=== PATIENT | male | born 1935 | race American Indian/Alaskan Native ===

== ENCOUNTER 2017-01-12 08:25 | Inpatient (IN) | payer MEDICARE ==
[2017-01-12] MEDS ORDERED: NACL 0.9% 1000 ML 1,000 ML IV ONE (09:13)
--- NOTE | 2017-01-12 09:22 | Emergency Department Report ---
HPI - General Chief Complaint: Weakness Time Seen by Provider: 01/12/17 09:07 - HPI HPI: Room 7 The patient is a 81-year-old male presenting with a chief complaint of altered mental status. Family states the patient has not been behaving like himself for the past week and also looks as though he is "not breathing right." Today the patient was found to be unresponsive on the floor was subsequently brought in to the ED for evaluation. Parents states patient has not been behaving like himself and gives an example the patient willingly placing himself on the floor episode of sitting in a chair or lying in the bed. Family denies any history of fall. The patient has a history of Alzheimer's Location: Mental state Duration: One week Quality: Altered Severity: Moderate Modifying factors: [see above] Context: [see above] Mode of transportation: [not driving] ED Past Medical Hx - Past Medical History Hx Hypertension: Yes (no diagnosed, no meds BP 177/93) Hx Dementia: Yes Additional medical history: alzheimers, dementia - Surgical History Additional Surgical History: prostate - Family History Family history: no significant - Social History Smoking Status: Former Smoker (none 30 years) Substance Use Type: None - Medications Home Medications: Home Medications Medication Instructions Recorded Confirmed Last Taken Type Docusate Sodium [Colace CAP] 100 mg PO BID PRN #30 capsule 04/12/14 07/31/1409/08 Rx Memantine [Namenda] 1 tab PO DAILY 05/09/14 07/31/14 07/29/14 History Lisinopril [Zestril TAB] 20 mg PO QDAY #30 tablet 05/14/14 07/31/14 07/30/14 Rx ED Review of Systems ROS: Stated complaint: FAILURE TO THRIVE Other details as noted in HPI Comment: Unobtainable due to pts medical conditions Physical Exam - Physical Exam Vital Signs: Vital Signs 01/12/17 08:35 Temperature 97.8 F Pulse Rate 108 H Respiratory 19 Rate Blood Pressure 89/59 O2 Sat by Pulse 96 Oximetry Physical Exam: GENERAL: The patient is well-developed well-nourished male lying on stretcher nonverbal. [] HEENT: Normocephalic. Atraumatic. NECK: Supple. Trachea midline CHEST/LUNGS: Occasional rhonchi/coarse breath sounds. There is no respiratory distress noted. HEART/CARDIOVASCULAR: Regular. There is tachycardia. There is no gallop rub or murmur. ABDOMEN: Abdomen is soft, nontender. Patient has normal bowel sounds. There is no abdominal distention. SKIN: There is no rash. There is no edema. There is no diaphoresis. NEURO: The patient is nonverbal and not cooperative at baseline. The patient will not cooperate with neurological exam MUSCULOSKELETAL: There is no evidence of acute injury. ED Course Vital Signs 01/12/17 08:35 Temperature 97.8 F Pulse Rate 108 H Respiratory 19 Rate Blood Pressure 89/59 O2 Sat by Pulse 96 Oximetry ED Medical Decision Making - Lab Data Result diagrams: 01/12/17 09:28 01/12/17 09:28 Laboratory Tests 01/12/17 01/12/17 01/12/17 08:41 09:28 09:28 WBC 6.8 RBC 4.18 Hgb 11.8 Hct 35.3 L MCV 85 MCH 28 MCHC 33 RDW 17.0 H Plt Count 106 L Lymph % (Auto) 6.8 L [place] % (Auto) 4.4 Eos % (Auto) 0.1 Baso % (Auto) 0.2 Lymph # 0.5 L [place] # 0.3 Eos # 0.0 Baso # 0.0 Seg Neutrophils % 88.5 H Seg Neutrophils # 6.0 PT 18.6 H INR 1.47 H APTT 29.7 Sodium Potassium Chloride Carbon Dioxide Anion Gap BUN Creatinine Estimated GFR BUN/Creatinine Ratio Glucose POC Glucose 86 Calcium Total Bilirubin AST ALT Alkaline Phosphatase Total Creatine Kinase CK-MB (CK-2) CK-MB (CK-2) Rel Index Troponin T Total Protein Albumin Albumin/Globulin Ratio 01/12/17 09:28 WBC RBC Hgb Hct MCV MCH MCHC RDW Plt Count Lymph % (Auto) [place] % (Auto) Eos % (Auto) Baso % (Auto) Lymph # [place] # Eos # Baso # Seg Neutrophils % Seg Neutrophils # PT INR APTT Sodium 151 H Potassium 4.6 Chloride 114.2 H Carbon Dioxide 14 L Anion Gap 27 BUN 71 H Creatinine 1.8 H Estimated GFR 44 BUN/Creatinine Ratio 39.44 Glucose 111 H POC Glucose Calcium 9.1 Total Bilirubin 1.10 AST 70 H ALT 38 Alkaline Phosphatase 160 H Total Creatine Kinase 823 H CK-MB (CK-2) 20.5 H CK-MB (CK-2) Rel Index 2.4 Troponin T 0.788 H* Total Protein 6.1 L Albumin 3.0 L Albumin/Globulin Ratio 1.0 - EKG Data -: EKG Interpreted by Me EKG shows normal: sinus rhythm Rate: tachycardia (108 bpm) - EKG Data Interpretation: nonspecific ST-T wave grace - Radiology Data Radiology results: report reviewed (chest x-ray, CT head), image reviewed ( chest x-ray) interpreted by me: Chest x-ray-right middle lobe infiltrate. Left rib fracture. No pneumothorax Chest x-ray (read by radiologist)-acute left rib fracture suspected, possibly involving 6 through [address] head (read by radiologist)-advanced volume loss and chronic white matter changes. No acute intracranial process - Differential Diagnosis ACS, ICH, rhabdomyolysis, UTI, sepsis, pneumonia Critical care attestation.: If time is entered above; I have spent that time in minutes in the direct care of this critically ill patient, excluding procedure time. ED Disposition Clinical Impression: Altered mental status, Pneumonia, Ribs, multiple fractures, Elevated troponin, Acute renal insufficiency, Hypernatremia, Dehydration Disposition: 09 OP ADMIT IP TO THIS HOSP Is pt being admited?: Yes Does the pt Need Aspirin: No Condition: Fair Instructions: Bacterial Pneumonia (ED) Referrals: PRIMARY CARE, [Primary Care Provider] - 3-5 Days Time of Disposition: 11:04 (hospitalist placed)
[2017-01-12 09:43] LABS: Basophils % (Auto) 0.2 % (0.0-1.8); Eosinophils % (Auto) 0.1 % (0.0-4.3); Hematocrit 35.3 % (35.5-45.6); Hemoglobin 11.8 gm/dl (11.8-15.2); Mean Corpuscular HGB Conc 33 % (32-34); Mean Corpuscular Hemoglobin 28 pg (28-32); Mean Corpuscular Volume 85 fl (84-94); Platelet Count 106 K/mm3 (140-440); Red Blood Count 4.18 M/mm3 (3.65-5.03); White Blood Count 6.8 K/mm3 (4.5-11.0)
[2017-01-12 09:53] LABS: INR 1.47 (0.87-1.13)
[2017-01-12 09:54] LABS: Partial Thromboplastin Time 29.7 Sec. (24.2-36.6)
[2017-01-12 10:05] LABS: Creatine Kinase MB 20.5 ng/mL (0.0-4.0)
[2017-01-12 10:06] LABS: BUN/Creatinine Ratio 39.44; Bilirubin,Total 1.1 mg/dL (0.1-1.2); Calcium 9.1 mg/dL (8.4-10.2); Chloride 114.2 mmol/L (98-107); Potassium 4.6 mmol/L (3.6-5.0); Total Protein 6.1 g/dL (6.3-8.2)
--- NOTE | 2017-01-12 10:41 | XRay Report ---
PORTABLE CHEST INDICATION: Increased work of breathing. COMPARISON: None similar. FINDINGS: Portable, frontal chest radiograph suggests borderline cardiomegaly. Aortic knob calcifications. Hazy bibasilar opacities may represent fluid/atelectasis with partly obscured hemidiaphragms. Mild hazy biapical scarring/pleural thickening. EKG leads. Demineralized bones, few degenerative changes and an acute left seventh rib fracture, also questionably involving the sixth and eighth ribs. CONCLUSION: 1. Acute left rib fractures suspected, possibly involving sixth through eighth ribs, as described. Please correlate. 2. Bibasilar opacities also noted, as described. Thank you for the opportunity to participate in this patient's care.
--- NOTE | 2017-01-12 10:48 | Cat Scan Report ---
CT HEAD WITHOUT CONTRAST: HISTORY: Altered mental status. TECHNIQUE: Sequential CT images without contrast. FINDINGS: Non-contrast CT of the head is submitted demonstrating central and cortical atrophy. There are low density changes in the periventricular white matter. There is no intracranial hemorrhage or mass effect. There is no shift of the midline. Basilar cisterns are patent. The included portions of the paranasal sinuses and mastoid air cells are clear. IMPRESSION: Advanced volume loss and chronic white matter changes. No acute intracranial process.
[2017-01-12] MEDS ORDERED: ZOSYN/NS 3.375GM/50ML 3.375 GM/50 ML BAG IV ONE (10:49)
[2017-01-12] MEDS ORDERED: PLAVIX PO ONE (10:51)
[2017-01-12] MEDS ORDERED: PERCOCET 5/325 PO PRN (11:24)
[2017-01-12] MEDS ORDERED: DULCOLAX PR PRN (11:24)
[2017-01-12] MEDS ORDERED: TYLENOL PO PRN (11:24)
[2017-01-12] MEDS ORDERED: ZOFRAN IV PRN (11:24)
--- NOTE | 2017-01-12 11:24 | History and Physical Report ---
History of Present Illness Date of examination: 01/12/17 Date of admission: 01/13/17 Chief complaint: AMS History of present illness: The pt is a 81 YO male with a past medical history significant for HTN, HLP, prostate CA, s/p prostatectomy in 1999 and Alzheimer's disease (since 2000) presenting with a chief complaint of altered mental status. Today the patient was found to be unresponsive on the floor was subsequently brought in to the ED for evaluation. Family states the patient has not been behaving like himself for the past week and also looks as though he is "not breathing right." Family denies any history of fall. Patient during encounter unable to provide any history. Following admission, pt noted to have bilateral PNA on CXR, lactic acidosis, acute renal failure, mild rhabdomyolysis, dehydration, hypernatremia and thrombocytopenia. Past medical History: h/o dementia since 2000, HTN, HLD, prostate cancer Past surgical History: s/p prostate surgery on 1999 Social History: Lives with family, no smoking, drinking and elicit drug abuse. Family History: Significant for dementia Review of System: unobtainable due to AMS Medications and Allergies Allergies Allergy/AdvReac Type Severity Reaction Status Date / Time No Known Allergies Allergy Verified 05/09/14 13:30 Home Medications Medication Instructions Recorded Confirmed Last Taken Type Acetaminophen/Codeine [Tylenol 1 tab PO TID PRN 01/12/17 01/12/17 Unknown History /Codeine # 3 tab] Ketoconazole 2% [Nizoral] 1 applicatio TP QDAY 01/12/17 01/12/17 Unknown History Memantine HCl [Namenda Xr] 28 mg PO DAILY 01/12/17 01/12/17 Unknown History Mirtazapine [Remeron] 15 mg PO HS 01/12/17 01/12/17 Unknown History Rosuvastatin (Nf) [Crestor] 20 mg PO DAILY 01/12/17 01/12/17 Unknown History Exam - Physical Exam Narrative exam: GENERAL: This is elderly malnurished AAM lying on bed. Does not respond to any commend. will open eyes and make moaning sound with verbal commend. HEENT: Normocephalic. Atraumatic. No conjunctival congestion or icterus. Patient has very dry mucous membranes. External auditory canal and nares patent bilaterally. NECK: Supple. Trachea midline. CHEST/LUNGS: coarse BS to auscultated bilaterally. There is no respiratory distress noted, breathing nonlabored. HEART/CARDIOVASCULAR: tachycardic. PMI at the apex. There is no gallop rub or murmur. ABDOMEN: Abdomen is soft, nontender. Patient has normal bowel sounds. There is no abdominal distention. No organomagaly or rigidity. SKIN: There is no rash, no erythrema. There is no diaphoresis. cold and dry. NEUROLOGY: The patient appears not responsive but maintaining airway. No focal motor deficit noted. MUSCULOSKELETAL: No joint effusion or tenderness. generalized muscle wasting. EXTRIMITY: No edema, cyanosis or clubbing. PSYCH: Unable to assess. - Constitutional Vitals: Temp Pulse Resp BP Pulse Ox 98.2 F 104 H 13 112/74 98 01/12/17 11:04 01/12/17 11:04 01/12/17 11:04 01/12/17 11:04 01/12/17 11:04 Results - Labs CBC & Chem 7: 01/14/17 05:33 01/14/17 05:33 Labs: Abnormal lab results 01/12/17 01/12/17 01/12/17 Range/Units 09:28 09:28 09:28 Hct 35.3 L (35.5-45.6) % RDW 17.0 H (13.2-15.2) % Plt Count 106 L (140-440) K/mm3 Lymph % (Auto) 6.8 L (13.4-35.0) % Lymph # 0.5 L (1.2-5.4) K/mm3 Seg Neutrophils % 88.5 H (40.0-70.0) % PT 18.6 H (12.2-14.9) Sec. INR 1.47 H (0.87-1.13) Sodium 151 H (137-145) mmol/L Chloride 114.2 H (98-107) mmol/L Carbon Dioxide 14 L (22-30) mmol/L BUN 71 H (9-20) mg/dL Creatinine 1.8 H (0.8-1.5) mg/dL Glucose 111 H (75-100) mg/dL AST 70 H (5-40) units/L Alkaline Phosphatase 160 H (35-129) units/L Total Creatine Kinase 823 H (55-170) units/L CK-MB (CK-2) 20.5 H (0.0-4.0) ng/mL Troponin T 0.788 H* (0.00-0.029) ng/mL Total Protein 6.1 L (6.3-8.2) g/dL Albumin 3.0 L (3.9-5) g/dL - Imaging and Cardiology Chest x-ray: report reviewed (bibasilar opacities, acute 6 to eight rib fractures) Assessment and Plan Acute metabolic encephalopathy - likely from underlying, hypernatremia and SEAN - pt also has h/o dementia - will cont iv fluid, will treat underlying cause Hypernatremia, likely from dehydration - cont hypotonic solution - follow BMP q8h Acute renal failure likely vasomotor nephropathy - cont iv fluid - if no improvement then renal US and nephrology consult Bilateral pneumonia - cont iv abx - blood cx, sputum cx History of prostate cancer - s/p surgery on 2000, no acute issue now Alzheimer dementia - supportive care - cont namenda when can take po Mild rhabdomyolysis - cont iv fluid Severe malnutrition - likely from poor oral intake - dietary consult when medically stable Thrombocytopenia - cont to monitor CBC - cautiously use heparin product Elevated troponin - could be from underlying SEAN - will cont to monitor Rib fracture - appears acute on cxr, family denies any fall or trauma - supportive care with as needed pain management GI and DVT prophylaxis on pepcid, heparin Diet: NPO now, will do speech eval before any po when mental status improved
[2017-01-12] MEDS: HEPARIN SUB-Q SCH ×2 (11:45→20:33)
[2017-01-12] MEDS ORDERED: D5W/0.45% NACL/KCL 20 MEQ 20 MEQ/1,000 ML BAG IV SCH (12:00)
[2017-01-12 12:56] LABS: Bacteria,Urine 2+ /HPF (Negative); Bilirubin,Urine NEG (Negative); Blood,Urine MOD (Negative); Ketones,Urine NEG (Negative); Leukocyte Esterase,Urine NEG (Negative); Mucus,Urine 1+ /HPF; Nitrite,Urine NEG (Negative)
--- NOTE | 2017-01-12 14:11 | Admit Criteria Form ---
Admission Criteria Documentation: GENERAL ADMISSION CRITERIA (Place 'X' for any and all applicable criteria): Admission is indicated for ANY ONE of the following: [ ]I. Hemodynamic instability as indicated by ANY ONE of the following(1)(2) (3)(4)(5): [ ]a) Vital sign abnormality not readily corrected by appropriate treatment within 12 to 24 hours indicated by ANY ONE of the following: [ ]i) Hypotension [ ]ii) Symptomatic Tachycardia unresponsive to treatment (eg , analgesia, fluids, sedation as indicated) [ ]iii) Orthostatic vital sign changes unresponsive to treatment (eg, fluids) [ ]b) Vital sign abnormality that is severe indicated by ANY ONE of the following: [ ]i) Inadequate perfusion indicated by ANY ONE of the following: [ ]1) Lactic acidosis (greater than 2 mmol/L) [ ]2) New abnormal capillary refill (greater than 3 seconds) [ ]3) Other metabolic acidosis (arterial pH less than 7.35) not otherwise explained [ ]4) Reduced urine output [ ]5) Altered mental status [ ]6) Myocardial Ischemia [ ]v) Mean arterial pressure[A] less than 60 mm Hg [ ]vi) Mean arterial pressure[A] less than 70 mm Hg after 30 minutes of appropriate treatment (eg, fluid resuscitation) [ ]vii) IV inotropic or vasopressor medication required to maintain adequate blood pressure or perfusion [ ]viii) Sustained heart rate greater than 120 beats per minute in adult or child 6 years or older[B]] [ ]II. Hypertension requiring inpatient treatment as indicated by ANY ONE of the following(6)(7)(8): [ ]a) SBP greater than 220 mm Hg or DBP greater than 120 mm Hg despite treatment [ ]b) SBP greater than 140 mm Hg or DBP greater than 100 mm Hg with evidence of acute end organ damage as indicated by ANY ONE of the following: [ ]i) Encephalopathy [ ]ii) Acute renal failure as indicated by new onset of ANY ONE of the following(9)(10)(11)(12)(13): [ ]1) A 3-fold rise in serum creatinine from baseline [ ]2) Serum creatinine greater than 4 mg/dL ( 354 micromoles/L) with acute rise greater than 0.5 mg/dL (44.2 micromoles/L) [ ]3) Reduction of more than 75% in estimated glomerular filtration rate from baseline [ ]4) Estimated glomerular filtration rate less than 35 mL/min/1.73m2 (0.59 mL/sec/1.73m2) in child up to 18 years of age [ ]5) Cessation of urine output indicated by ALL of the following: [ ]A. Adequate volume status [ ]B. Inadequate urine output as indicated by ANY ONE of the following: [ ]a. Urine output less than 0.3 mL/kg/hr for 24 hours [ ]b. Anuria (urine output less than 0.1 mL/kg/hr) for 12 hours [ ]iii) Aortic dissection [ ]iv) Myocardial ischemia [ ]v) Left ventricular heart failure [ ]vi) Retinal hemorrhage [ ]vii) Other significant finding [ ]c) Hypertension in child requiring inpatient treatment as indicated by ALL of the following(14)(15)(16): [ ]i) Outpatient treatment not effective, not available, or not appropriate [ ]ii) SBP or DBP greater than 95th percentile for age [ ]iii) Evidence of acute end organ damage as indicated by ANY ONE of the following: [ ]1) Altered mental status [ ]2) Acute renal failure as indicated by new onset of ANY ONE of the following(9)(10)(11)(12)(13): [ ]A. A 3-fold rise in serum creatinine from baseline [ ]B. Serum creatinine greater than 4 mg/dL (354 micromoles/L) with acute rise greater than 0.5 mg/dL (44.2 micromoles/L) [ ]C. Reduction of more than 75% in estimated glomerular filtration rate from baseline [ ]D. Estimated glomerular filtration rate less than 35 mL/min/1.73m2 (0.59 mL/sec/1.73m2)in child up to 18 years of age [ ]E. Cessation of urine output indicated by ALL of the following: [ ]a. Adequate volume status [ ]b. Inadequate urine output as indicated by ANY ONE of the following: [ ]1) Urine output less than 0.3 mL/kg/hr for 24 hours [ ]2) Anuria (urine output less than 0.1 mL/kg/hr) for 12 hours [ ]3) Severe headache [ ]4) Visual disturbance [ ]5) Retinal hemorrhage [ ]6) Other significant finding [ ]III. Acute cardiac or peripheral ischemia as indicated by ANY ONE of the following: [ ]a) Acute coronary syndrome(17)(18) [ ]b) Acute peripheral ischemia (eg, pulseless, cool, mottled, or cyanotic extremity)(19) [ ]IV. Cardiac arrhythmias or findings of immediate concern indicated by ANY ONE of the following(20)(21): [ ]a) Heart rhythms that are inherently dangerous or unstable indicated by ANY ONE of the following(22)(23)(24): [ ]i) Resuscitated ventricular fibrillation or cardiac arrest [ ]ii) Ventricular escape rhythm [ ]iii) Sustained ventricular tachycardia (30 seconds or more of ventricular rhythm at greater than 100 beats per minute) [ ]iv) Nonsustained ventricular tachycardia and ANY ONE of the following: [ ]1) Suspected cardiac ischemia as cause or consequence of ventricular tachycardia [ ]2) In setting of acute myocarditis [ ]b) Unstable cardiac conduction defects indicated by ANY ONE of the following(24)(25)(26): [ ]i) Type II second-degree atrioventricular block [ ]ii) Third-degree atrioventricular block [ ]iii) New-onset left bundle branch block with suspected myocardial ischemia [ ]c) Any heart rhythm and ANY ONE of the following(22)(23)(27)(28)( 29): [ ] i) Continuous long-term ECG monitoring needed (eg, initiation of drug requiring monitoring for more than 24 hours) [ ] ii) Patient has automatic implanted cardioverter defibrillator that is repeatedly firing, malfunctioning, or in need of immediate adjustment of settings beyond the scope of ambulatory or observation care. [ ]d) Heart rhythms of concern due to ANY ONE of the following: [ ]i) Hypotension [ ]ii) Respiratory distress [ ]iii) Association with other significant symptoms (eg, bradycardia with syncope or ongoing dizziness, supraventricular tachycardia with chest pain) (27)(28) (30) [ ] V. Severe heart failure as indicated by ANY ONE of the following ( 31)(32): [ ]a) Respiratory distress [ ]b) Hypotension [ ]c) Anasarca (refractory to outpatient therapy) [ ]d) Cardiac arrhythmias of immediate concern [ ]e) Myocardial ischemia [ ]. Respiratory abnormalities, including ANY ONE of the following(33)(34) (35)(36): [ ]a) Respiratory rate greater than 30 breaths per minute unresponsive to treatment [A] [ ]b) New saturation of arterial oxygen less than 90% [ ]c) New partial pressure of carbon dioxide greater than 44 mm Hg ( 5.9 kPa) [ ]d) Supplemental oxygen or respiratory treatments needed that are new or not performable at other levels of care [ ]e) New-onset cyanosis [ ]f) Inability to protect airway [ ]g) Chronic lung disease with severe deterioration (not responsive to emergency and observation care treatment as appropriate) as indicated by ANY ONE of the following(34)(36 ): [ ]i) SaO2 5% below baseline in patient with chronic hypoxemia [ ]ii) New requirement for supplemental oxygen to keep SaO2 at baseline or acceptable level [ ]iii) Required supplemental oxygen performable only in acute inpatient setting [ ]iv) Severe airflow or ventilation abnormalities [ ]v) Previously mobile patient unable to walk between rooms [ ]vi Inability to eat or sleep due to dyspnea [ ]vii) Rapid rate of exacerbation onset [ ]viii) Altered mental status ]VII. Severe airflow or ventilation abnormalities (not responsive to emergency and observation care treatment as appropriate) as indicated by ANY ONE of the following(33)(34)(35)(37): [ ]a) PCO2 greater than 42 mm Hg (5.6 kPa) and pH less than 7.35 (new ) [ ]b) Documented PCO2 increased more than 5 mm Hg (0.7 kPa) from disease baseline [ ]c) Airflow measurements [B] less than 60% of previous best or predicted (eg, peak expiratory flow rate less than 300 L/minute) despite intensive emergent treatment [C] [ ]d) Required respiratory treatments that are performable only in acute inpatient setting [ ]VIII. Impending or actual respiratory arrest ( Also use Respiratory Failure GRG for severe respiratory disease and long-term mechanical ventilation patients) [ ]IX. Neurologic abnormalities, including ANY ONE of the following: [ ]a) New findings that suggest ANY ONE of the following: [ ]i) [employer] infection(38) [ ]ii) Cerebral bleeding, ischemia, or vasospasm(39)(40) [ ]iii) Increased intracranial pressure, hydrocephalus, or cerebral edema(41)(42)(43) [ ]iv) Spinal cord injury(44) [ ]b) Uncontrolled seizures(45) [ ]c) New-onset coma (eg, [place] coma scale score less than 9) or unexplained abnormal mental status (eg, [place] coma scale score less than 14) [D](41)(46)(47) [ ]X. New-onset severe neurologic findings requiring inpatient care; examples include(42)(48)(49): [ ]a) Papilledema [ ]b) Cerebral edema [ ]c) Mass effect on CT scan [ ]XI. Suspected acute intra-abdominal process with peritoneal signs, abdominal mass, or similar findings (50)(51)(52) [ ]XII. Severe physiologic disorder remaining after emergency or observation level care (as appropriate) as indicated by ANY ONE of the following (53): [ ]a) Significant dehydration [ ]b) Diabetic ketoacidosis [ ]c) Hyperglycemic hyperosmolar state (eg, osmolality greater than 320 mOsm/kg (mmol/kg) [ ]d) Hypoglycemia [ ]e) Other (new) acid-base disorder with pH less than 7.35 or greater than 7.5(54) [ ]f) Thyroid storm (55) [ ]g) Myxedema coma (55) [ ]XIII. Abdominal abnormalities with ANY ONE of the following(56)(57): [ ]a) Absent bowel sounds with complete ileus [ ]b) Signs of intestinal obstruction or peritonitis [E] [ ]c) Nausea and vomiting that cannot be controlled with outpatient or observation care [ ]XIV. Acute renal failure as indicated by new onset of ANY ONE of the following(9)(10)(11)(12)(13): [ ]a) A 3-fold rise in serum creatinine from baseline [ ]b) Serum creatinine greater than 4 mg/dL (354 micromoles/L) with acute rise greater than 0.5 mg/dL (44.2 micromoles/L) [ ]c) Reduction of more than 75% in estimated glomerular filtration rate from baseline [ ]d) Estimated glomerular filtration rate less than 35 mL/min/ 1.73m2 (0.59 mL/sec/1.73m2) in child up to 18 years of age [ ]e) Cessation of urine output indicated by ALL of the following: [ ]i) Adequate volume status [ ]ii) Inadequate urine output as indicated by ANY ONE of the following: [ ]1) Urine output less than 0.3 mL/kg/hr for 24 hours [ ]2) Anuria (urine output less than 0.1 mL/kg/hr) for 12 hours [ ]XV. Significant uremic complications as indicated by ANY ONE of the following(58)(59)(60): [ ]a) Outpatient therapy is ineffective or not feasible for ANY ONE of the following: [ ]i) Severe heart failure [ ]ii) Severehypertension [ ]iii) Pleural effusion [ ]iv) Pericarditis or pericardial effusion [ ]b) Cardiac arrhythmias of immediate concern [ ]c) Intractable nausea or vomiting [ ]d) Recurrent seizures [ ]e) Encephalopathy [ ]f) Bleeding abnormalities (eg, platelet dysfunction) with active (eg, gastrointestinal) bleeding [ ]g) Dialysis indicated before long-term access or ambulatory arrangements can be made [ ]h) Significant metabolic or electrolyte abnormalities (eg, severe acidosis or hyperkalemia) [ ]XVI. High fever or other high-risk infection situation as indicated by ANY ONE of the following(61)(62)(63)(64): [ ]a) Outpatient and observation care antimicrobial treatment unavailable, not effective, or not appropriate [ ]b) Documented bacteremia [ ]c) Temperature greater than 40.5 degrees C (104.9 degrees F) ( oral) [ ]d) Temperature greater than 39.5 degrees C (103.1 degrees F) ( oral) or less than 36 degrees C (96.8 degrees F) (rectal) that does not respond to e treatment and observation care [ ] XVII. Temperature less than 95 degrees F (35 degrees C)(rectal)(65) [ ] XVIII. Severe nutritional abnormalities as indicated by ALL of the following (66)(67): [ ]a) Inability to tolerate or establish sufficient oral or other enteral nutrition in outpatient setting [ ]b) Parenteral nutrition regimen need that must be implemented on inpatient basis [ ] XIX. Severe electrolyte abnormalities indicated by ALL of the following(68) (69)(70): [ ]a) Electrolytes and associated findings are not as expected for patient baseline or acceptable treatment effects. [ ]b) Severe abnormalities indicated by ANY ONE of the following: [ ]i) Sodium less than 130 mEq/L (mmol/L) (new) [ ]ii)Sodium less than 135 mEq/L (mmol/L) with ANY ONE of the following: [ ]1) Uncorrectable (to near normal or chronic baseline) after trial of outpatient and emergency treatment [ ]2) Altered mental status [ ]3) Seizures [ ]4) Severe medical etiology requiring inpatient management (eg, heart failure, hypovolemia) [ ]iii) Sodium greater than 155 mEq/L (mmol/L) [ ]iv) Sodium greater than 150 mEq/L (mmol/L) with ANY ONE of the following: [ ]1) Uncorrectable (to near normal or chronic baseline) with outpatient and emergency treatment [ ]2) Altered mental status [ ]3) Seizures [ ]4) Severe medical etiology (eg, hypovolemia, diabetes insipidus) [ ]v) Potassium less than 2.5 mEq/L (mmol/L) despite outpatient and emergency treatment [ ]vi) Potassium less than 3 mEq/L (mmol/L) with ANY ONE of the following: [ ]1) Weakness [ ]2) Cardiac abnormality (eg, arrhythmia, conduction disturbance) [ ]3) Cardiac ischemia [ ]4) Ileus [ ]5) Ongoing medical cause requiring inpatient management (eg, acute renal wasting or SIADH) [ ]6) Other severe symptoms [ ]vii) Potassium greater than 6.5 mEq/L (mmol/L) [ ]viii) Potassium greater than 5 mEq/L (mmol/L) with ANY ONE of the following: [ ]1) Uncorrectable (to near normal or chronic baseline) with outpatient and emergency treatment [ ]2) Severe ECG findings [F] [ ]3) Acute worsening of renal failure (creatinine greater than 2.5 mg/dL (221 micromoles/L) or significant elevation for age and size) [ ]4) Severe weakness [ ]5) Severe medical etiology (eg, hemolysis, infection, drug overdose) [ ]ix) Calcium less than 7 mg/dL (1.75 mmol/L) despite outpatient and emergency treatment (72) [ ]x) Calcium less than 8 mg/dL (2 mmol/L) with significant symptoms or findings; examples include(72): [ ]1) Altered mental status [ ]2) Muscle spasms [ ]3) Seizures [ ]4) Breathing difficulty [ ]5) Cardiac abnormality (eg, arrhythmia or conduction disturbance) [ ]xi) Calcium greater than 14 mg/dL (3.5 mmol/L)(72) [ ]xii) Calcium greater than 12 mg/dL (3 mmol/L) with ANY ONE of the following(72): [ ]1) Uncorrectable (to near normal or chronic baseline) with outpatient and emergency treatment [ ]2) Significant dehydration or hypovolemia as indicated by ALL of the following(70)(73)(74): [ ]A. Not resolved with initial treatments [ ]B. Clinically significant dehydration as indicated by ANY ONE of the following: [ ]a. Vomiting refractory to outpatient treatment (ie, precluding oral rehydration) [ ]b. Inability to drink [ ]c. Hypernatremia or other electrolyte abnormality unable to be corrected with outpatient and emergency treatment [ ]d. Failure to remain hydrated with outpatient therapy [ ]e. Reduced urine output [ ]f. Hypotension [ ]g. Serious cause for dehydration requiring acute hospitalization (eg, bowel obstruction, increased intracranial pressure, infectious cause) [ ]h. Child with ANY ONE of the following(75): [ ]1) Severe abdominal tenderness [ ]2) Adequate care not available at home [ ]3) Severe dehydration ( greater than 9% loss of body weight) [ ]4) Significant symptoms or findings; examples include: [ ]A. Altered mental status [ ]B. Cardiac abnormality (eg, arrhythmia, conduction disturbance) [ ]C. Malignant etiology requiring inpatient treatment [ ]xiii) Phosphorus less than 1 mg/dL (0.32 mmol/L) [ ]xiv) Phosphorus less than 1.5 mg/dL (0.48 mmol/L) with ANY ONE of the following: [ ]1) Patient unresponsive to outpatient and emergency treatment [ ]2) Significant symptoms or findings; examples include: [ ]A. Weakness [ ]B. Altered mental status [ ]C. Breathing difficulty [ ]D. Seizures [ ]E. Rhabdomyolysis [ ]xv) Phosphorus greater than 10 mg/dL (3.2 mmol/L) [ ]xvi) Phosphorus greater than 4.5 mg/dL (1.45 mmol/L) (new) with ANY ONE of the following: [ ]1) Severe medical etiology (eg, crush injury, acute renal failure) [ ]2) Associated hypocalcemia with significant findings; examples include: [ ]A. Neurologic symptoms [ ]B. Altered mental status [ ]C. Muscle spasms [ ]D. Seizures [ ]E. Breathing difficulty [ ]F. Cardiac abnormality (eg, arrhythmia, conduction disturbance) [ ]xvii) Magnesium less than 1 mg/dL (0.41 mmol/L) [ ]xviii) Magnesium less than 1.5 mg/dL (0.62 mmol/L) with ANY ONE of the following: [ ]1) Patient unresponsive to outpatient and emergency treatment [ ]2) Associated hypocalcemia with significant findings; examples include: [ ]A. Altered mental status [ ]B. Muscle spasms [ ]C. Seizures [ ]D. Breathing difficulty [ ]E. Cardiac abnormality (eg, arrhythmia , conduction disturbance) [ ]3) Associated hypokalemia (potassium less than 3 mEq/L (mmol/L)) with risk of arrhythmia [ ]xix) Magnesium greater than 4 mEq/L (2 mmol/L) [ ]xx) Magnesium greater than 2.5 mEq/L (1.25 mmol/L) with significant symptoms or findings; examples include: [ ]1) Weakness [ ]2) Altered mental status [ ]3) Cardiac abnormality (eg, arrhythmia, conduction disturbance) [ ]4) Breathing difficulty [ ]5) Severe medical etiology (eg, renal failure, hypovolemia) [ ]xxi) Uric acid greater than 20 mg/dL (1190 micromoles/L)(76) [ ]xxii) Uric acid greater than 8 mg/dL (476 micromoles/L) with significant symptoms or findings of tumor lysis syndrome; examples include(76): [ ]1) Creatinine greater than 1.5 times upper limit of normal [ ]2) Cardiac abnormality (eg, arrhythmia, conduction disturbance) [ ]3) Seizure [ ]XX. Acute blood loss causing significant abnormality as indicated by ANY ONE of the following(77)(78): [ ]a) Hemoglobin less than 10 g/dL (100 g/L) (not baseline) [ ]b) Hematocrit less than 30% (0.30) (not baseline) [ ]c) Repeat hematocrit decreased more than 2% (0.02) [ ]d) Uncontrolled bleeding [ ]XXI. Severe anemia indicated by ANY ONE of the following(78)(79): [ ]a) Altered mental status [ ]b) Chest pain [ ]c) Exertional dyspnea [ ]d) Syncope [ ]e) Other findings suggesting inadequate perfusion [ ]f) Treatment with transfusion or volume replacement is ineffective at resolving ANY ONE of the following [G]: [ ]i) Tachycardia for age [ ]ii) Orthostatic vital sign changes as indicated by ANY ONE of the following(80): [ ]1) Fall in SBP of 20 mm Hg or more 1 to 3 minutes after patient sits or stands from recumbent position [ ]2) Fall in DBP of 10 mm Hg or more 1 to 3 minutes after patient sits or stands from recumbent position [ ]XXII. High-risk low platelet count as indicated by ANY ONE of the following( 81)(82): [ ]a) Severe or life-threatening bleeding (eg, intracranial, major gastrointestinal, or extensive mucosal bleeding), with any reduced platelet count [ ]b) Platelet count less than 20,000/mm3 (20 x109/L) with any active bleeding [ ]c) Platelet count less than 10,000/mm3 (10 x109/L) with minor purpura or petechiae [ ]d) Platelet count less than 5000/mm3 (5 x109/L) [ ]e) Low platelet count with hemolytic anemia [ ]XXIII. Disseminated intravascular coagulation(77)(83) [ ]XXIV. Severe adverse drug or systemic toxin reaction requiring inpatient treatment; examples include(84)(85): [ ]a) Serotonin syndrome(86) [ ]b) Neuroleptic malignant syndrome(86) [ ]c) Cholinergic syndrome with severe symptoms (eg, bronchorrhea, weakness, mental status changes, seizures) [ ]d) Sympathetic syndrome with severe symptoms (eg, seizures, mental status changes, cardiac dysrhythmias) [ ]e) Anticholinergic syndrome [ ]XXV. Severe pain requiring acute inpatient management as indicated by ALL of the following (87)(88)(89): [ ]a) Continuous or frequent (eg, every 2 to 4 hours) parenteral analgesics required [H] [ ]b) Rapid improvement expected from treatment or acute intervention (eg, surgery, anesthesia procedure) [ ]XXVI.Severe behavioral health issues judged unmanageable at a lower level of care (eg, residential) in a patient who is ANY ONE of the following(91) [ ]a) Acutely suicidal [ ]b) A danger to self (eg, self-mutilating or suicidal behavior) [ ]c) A danger to others (eg, assaultive or homicidal behavior) [ ]d) Incapacitated because of grave disability (eg, inability to provide for self at lower level of care) (92) [ ]XXVII. Inpatient monitoring needed; examples include(1)(3)(87)(93)(94)(95)(96 ): [ ]a) Vital signs, neurologic signs, or vascular checks more frequently than every 4 hours [ ]b) Cardiac or respiratory monitoring beyond the scope (eg, over 24 hours) of observation care [ ]c) Pulmonary artery catheter monitoring [ ]d) Suspected compartment syndrome(97) (98) [ ]e) Cerebral bleeding, hydrocephalus, or vasospasm monitoring [ ]f) Increased intracranial pressure or cerebral edema monitoring [ ]g) monitoring [ ]XXVIII. Treatment requiring inpatient care; examples include: [ ]a) IV fluid to replace significant ongoing losses (greater than 3 L/m2 per day)(53) [ ]b) High concentration oxygen (greater than 40%)(33)(99)(100) [ ]c) Frequent respiratory therapy (more frequently than every 4 hours) to maintain airflow rates greater than 60% of baseline(33)(99)(100) [ ]d) Epidural analgesia(87) [ ]e) IV anticoagulation, vasoactive, or antiarrhythmic medication(19 )(23) [ ]f) Acute thrombolytics (generally require 24 hours of observation )(101)(102) [ ]XXIX. Emergency procedures needed; examples include: [ ]a) Emergency inpatient surgery [ ]b) Temporary pacemaker placement(103) [ ]c) Chest tube placement with active evacuation (eg, suction, drainage)(104) [ ]d) Emergent cardioversion(105) [ ]e) Emergent cardiac or vascular procedures (eg, cardiac catheterization, angioplasty) (17)(18) [ ]f) Emergent dialysis access placement and institution(10)(106) [ ]g) Emergent pericardiocentesis(107) [ ]h) Emergent plasmapheresis or leukapheresis(83) [ ]i) Emergent tracheostomy The original [employer] content created by [employer] has been revised. The portions of the content which have been revised are identified through the use of italic text or in bold, and [employer] [email or web address] has neither reviewed nor approved the modified material. All other unmodified content is copyright [employer]. Please see references footnoted in the original [employer] edition 2016
[2017-01-12] MEDS: ZITHROMAX 500 MG in NACL 0.9% 250ML 250 ML IV SCH (15:40)
[2017-01-12] MEDS: DUONEB *Not for PRN Use IH SCH ×2 (16:54→20:47)
[2017-01-12] MEDS: ROCEPHIN/NS 1 GM/50 ML 1 GM/50 ML BAG IV SCH (17:00)
[2017-01-12 17:24] LABS: BUN/Creatinine Ratio 39.5; Calcium 9.1 mg/dL (8.4-10.2); Chloride 113.5 mmol/L (98-107); Potassium 4.4 mmol/L (3.6-5.0)
[2017-01-12] MEDS ORDERED: D5NS 0.2% 1,000 ML IV SCH (19:00)
[2017-01-12 21:56] LABS: Calcium 8.9 mg/dL (8.4-10.2); Chloride 115.6 mmol/L (98-107); Potassium 4.7 mmol/L (3.6-5.0)
[2017-01-12] MEDS: D5W IV SCH (23:11)
[2017-01-12] MEDS: NACL IV SCH (23:11)
[2017-01-13] MEDS: DUONEB *Not for PRN Use IH SCH ×4 (02:33→21:29)
[2017-01-13 03:17] LABS: Hematocrit 37.1 % (35.5-45.6); Hemoglobin 12.2 gm/dl (11.8-15.2); Mean Corpuscular HGB Conc 33 % (32-34); Mean Corpuscular Hemoglobin 28 pg (28-32); Mean Corpuscular Volume 85 fl (84-94); Red Blood Count 4.35 M/mm3 (3.65-5.03); Red Cell Distribution Width 17.7 % (13.2-15.2); White Blood Count 10.3 K/mm3 (4.5-11.0)
[2017-01-13 03:18] LABS: Platelet Count 96 K/mm3 (140-440)
[2017-01-13 03:30] LABS: Albumin 3.2 g/dL (3.9-5); Albumin/Globulin Ratio 1.1 %; BUN/Creatinine Ratio 35.21; Bilirubin,Total 1.5 mg/dL (0.1-1.2); Potassium 4.9 mmol/L (3.6-5.0); Total Protein 6.2 g/dL (6.3-8.2)
[2017-01-13] MEDS: HEPARIN SUB-Q SCH ×3 (06:57→21:10)
[2017-01-13] MEDS ORDERED: NAMENDA PO SCH (10:00)
[2017-01-13] MEDS: PEPCID IV SCH (10:38)
--- NOTE | 2017-01-13 14:49 | Ultrasound Report ---
ULTRASOUND RENAL BILATERAL HISTORY: Chronic renal disease. TECHNIQUE: transabdominal ultrasound with color Doppler interrogation. FINDINGS: The right kidney measures 8.4 x 4.8 x 4.1cm. Right renal cortex: 1.1cm. The left kidney measures 10.1 x 3.8 x 3.9cm. Left renal cortex: 0.9cm. Both kidneys are slightly atrophic with increased echotexture consistent with chronic renal parenchymal disease. 5.4 x 5.5 cm unilocular cyst at the superior pole of the left kidney is noted. There is no evidence for mass, calculus or hydronephrosis. The bladder is empty and contains a Vicente catheter. IMPRESSION: Chronic renal parenchymal disease. Left renal cyst.
[2017-01-13] MEDS: NACL IV SCH (15:23)
[2017-01-13] MEDS: D5W IV SCH (15:23)
[2017-01-13] MEDS: ZITHROMAX 500 MG in NACL 0.9% 250ML 250 ML IV SCH (15:41)
--- NOTE | 2017-01-13 15:43 | Progress Note ---
Assessment and Plan Acute metabolic encephalopathy - likely from underlying, hypernatremia and ESAN - pt also has h/o dementia - will cont iv fluid, will treat underlying cause - improving with current management Hypernatremia, likely from dehydration - cont hypotonic solution - follow BMP , nephrology consult Acute renal failure likely vasomotor nephropathy - cont iv fluid - ordered renal US and nephrology consult Bilateral pneumonia - cont iv abx - blood cx, sputum cx pending result History of prostate cancer - s/p surgery on 2000, no acute issue now Alzheimer dementia - supportive care - cont namenda when can take po Mild rhabdomyolysis - cont iv fluid Severe malnutrition - likely from poor oral intake - dietary consult when medically stable Thrombocytopenia - cont to monitor CBC - cautiously use heparin product Elevated troponin - could be from underlying SEAN - will cont to monitor - order 2d echo Rib fracture - appears acute on cxr, family denies any fall or trauma - supportive care with as needed pain management GI and DVT prophylaxis on pepcid, heparin Diet: wait for speech eval Subjective Date of service: 01/13/17 Interval history: Pt seen and examined Appears more alert and awake, but nonverbal and restless Discussed plan of care at bedside renal function further declined today did not spike fever, on restrain as he was pulling out iv lines Objective - Exam Narrative Exam: GENERAL: This is elderly malnurished AAM lying on bed. Does not respond to any commend. will open eyes and make moaning sound with verbal commend. Nonverbal HEENT: Normocephalic. Atraumatic. No conjunctival congestion or icterus. Patient has very dry mucous membranes. External auditory canal and nares patent bilaterally. NECK: Supple. Trachea midline. CHEST/LUNGS: coarse BS to auscultated bilaterally. There is no respiratory distress noted, breathing nonlabored. HEART/CARDIOVASCULAR: tachycardic. PMI at the apex. There is no gallop rub or murmur. ABDOMEN: Abdomen is soft, nontender. Patient has normal bowel sounds. There is no abdominal distention. No organomagaly or rigidity. SKIN: There is no rash, no erythrema. There is no diaphoresis. cold and dry. NEUROLOGY: No focal motor deficit noted. MUSCULOSKELETAL: No joint effusion or tenderness. generalized muscle wasting. EXTRIMITY: No edema, cyanosis or clubbing. PSYCH: nonverbal get agitated when asked any question. - Constitutional Vitals: Vital Signs - 12hr 01/13/17 01/13/17 01/13/17 05:45 08:08 08:12 Temperature 97.6 F Pulse Rate 76 Pulse Rate [ 66 Anterior Bilateral Throughout] Respiratory 16 Rate Respiratory 18 Rate [Anterior Bilateral Throughout] Blood Pressure 88/60 [Left] O2 Sat by Pulse 96 99 Oximetry 01/13/17 01/13/17 01/13/17 08:23 15:01 15:07 Temperature Pulse Rate Pulse Rate [ 86 64 Anterior Bilateral Throughout] Respiratory Rate Respiratory 18 18 Rate [Anterior Bilateral Throughout] Blood Pressure [Left] O2 Sat by Pulse 96 Oximetry - Labs CBC & Chem 7: 01/14/17 05:33 01/14/17 05:33 Labs: Abnormal lab results 01/12/17 01/12/17 01/13/17 Range/Units 16:45 21:16 00:40 RDW (13.2-15.2) % Plt Count (140-440) K/mm3 Lymph % (Auto) (13.4-35.0) % Lymph # (1.2-5.4) K/mm3 Seg Neutrophils % (40.0-70.0) % Seg Neutrophils # (1.8-7.7) K/mm3 Sodium 155 H 154 H (137-145) mmol/L Chloride 113.5 H 115.6 H (98-107) mmol/L Carbon Dioxide 16 L 11 L (22-30) mmol/L BUN 79 H 78 H (9-20) mg/dL Creatinine 2.0 H 2.0 H (0.8-1.5) mg/dL Glucose 109 H (75-100) mg/dL Total Bilirubin (0.1-1.2) mg/dL AST (5-40) units/L ALT (7-56) units/L Alkaline Phosphatase (35-129) units/L Troponin T 1.230 H* D (0.00-0.029) ng/mL Total Protein (6.3-8.2) g/dL Albumin (3.9-5) g/dL 01/13/17 01/13/17 01/13/17 Range/Units 02:00 02:00 05:51 RDW 17.7 H (13.2-15.2) % Plt Count 96 L (140-440) K/mm3 Lymph % (Auto) 5.0 L (13.4-35.0) % Lymph # 0.5 L (1.2-5.4) K/mm3 Seg Neutrophils % 90.0 H (40.0-70.0) % Seg Neutrophils # 9.2 H (1.8-7.7) K/mm3 Sodium 155 H (137-145) mmol/L Chloride 115.0 H (98-107) mmol/L Carbon Dioxide 15 L (22-30) mmol/L BUN 81 H (9-20) mg/dL Creatinine 2.3 H (0.8-1.5) mg/dL Glucose 139 H (75-100) mg/dL Total Bilirubin 1.50 H (0.1-1.2) mg/dL AST 156 H (5-40) units/L ALT 114 H (7-56) units/L Alkaline Phosphatase 227 H (35-129) units/L Troponin T 1.060 H* (0.00-0.029) ng/mL Total Protein 6.2 L (6.3-8.2) g/dL Albumin 3.2 L (3.9-5) g/dL 01/13/17 Range/Units 13:20 RDW (13.2-15.2) % Plt Count (140-440) K/mm3 Lymph % (Auto) (13.4-35.0) % Lymph # (1.2-5.4) K/mm3 Seg Neutrophils % (40.0-70.0) % Seg Neutrophils # (1.8-7.7) K/mm3 Sodium (137-145) mmol/L Chloride (98-107) mmol/L Carbon Dioxide (22-30) mmol/L BUN (9-20) mg/dL Creatinine (0.8-1.5) mg/dL Glucose (75-100) mg/dL Total Bilirubin (0.1-1.2) mg/dL AST (5-40) units/L ALT (7-56) units/L Alkaline Phosphatase (35-129) units/L Troponin T 1.230 H* (0.00-0.029) ng/mL Total Protein (6.3-8.2) g/dL Albumin (3.9-5) g/dL
[2017-01-13] MEDS: ROCEPHIN/NS 1 GM/50 ML 1 GM/50 ML BAG IV SCH (17:57)
[2017-01-13] MEDS: NAMENDA PO SCH (21:00)
[2017-01-13] MEDS: REMERON PO SCH (21:00)
--- NOTE | 2017-01-13 21:47 | Consultation ---
History of Present Illness - Reason for Consult Consult date: 01/13/17 acute renal failure, hypernatremia Requesting physician: MASON ANDERSON - History of Present Illness 81-year-old male with history of Alzheimer's dementia brought to the hospital with altered mental status. Family members also note patient has not been breathing right for a few days. He was then found unresponsive on the floor. Patient is unable to give a history due to the altered mental status. History is obtained from review of the records and discussing with the daughters at the bedside. Past History Past Medical History: cancer (prostate), hypertension, other (Alzheimer's dementia) Past Surgical History: Other (prostate surgery in 1999) Social history: lives with family Family history: other Medications and Allergies Allergies Allergy/AdvReac Type Severity Reaction Status Date / Time No Known Allergies Allergy Verified 05/09/14 13:30 Home Medications Medication Instructions Recorded Confirmed Last Taken Type Acetaminophen/Codeine [Tylenol 1 tab PO TID PRN 01/12/17 01/12/17 Unknown History /Codeine # 3 tab] Ketoconazole 2% [Nizoral] 1 applicatio TP QDAY 01/12/17 01/12/17 Unknown History Memantine HCl [Namenda Xr] 28 mg PO DAILY 01/12/17 01/12/17 Unknown History Mirtazapine [Remeron] 15 mg PO HS 01/12/17 01/12/17 Unknown History Rosuvastatin (Nf) [Crestor] 20 mg PO DAILY 01/12/17 01/12/17 Unknown History Active Meds: Active Medications Acetaminophen (Tylenol) 650 mg PO Q4H PRN PRN Reason: Pain MILD(1-3)/Fever >100.5/DO Last Admin: 01/13/17 17:56 Dose: 650 mg Albuterol/Ipratropium (Duoneb *Not For Prn Use*) 1 ampul IH Q6HRT [facility] Last Admin: 01/13/17 21:29 Dose: 1 ampul Atorvastatin Calcium (Lipitor) 40 mg PO QHS [facility] Bisacodyl (Dulcolax) 10 mg [place] QDAY PRN PRN Reason: Constipation unrelieved by MOM Famotidine (Pepcid) 20 mg IV QDAY [facility] Last Admin: 01/13/17 10:38 Dose: 20 mg Heparin Sodium (Porcine) (Heparin) 5,000 unit SUB-Q Q8HR [facility] Last Admin: 01/13/17 14:38 Dose: 5,000 unit Azithromycin 500 mg/ Sodium (Chloride) 250 mls @ 250 mls/hr IV Q24H [facility] Last Admin: 01/13/17 15:41 Dose: 250 mls/hr Ceftriaxone Sodium (Rocephin/Ns 1 Gm/50 Ml) 1 gm in 50 mls @ 100 mls/hr IV Q24H [facility] PRN Reason: Protocol Last Admin: 01/13/17 17:57 Dose: 100 mls/hr Sodium Chloride 38.48 meq/ (Dextrose) 1,009.62 mls @ 100 mls/hr IV DIRECT [facility] Last Admin: 01/13/17 15:23 Dose: 100 mls/hr Dextrose/Sodium Chloride (D5ns 0.2%) 1,000 mls @ 100 mls/hr IV DIRECT [facility] Memantine (Namenda) 10 mg PO Q12HR [facility] Mirtazapine (Remeron) 15 mg PO HS [facility] Ondansetron HCl (Zofran) 4 mg IV Q8H PRN PRN Reason: N/V unrelieved by Reglan Oxycodone/Acetaminophen (Percocet 5/325) 1 tab PO Q6H PRN PRN Reason: Pain, Moderate (4-6) Review of Systems ROS unobtainable: due to mental status Exam - Vital Signs Vital signs: Vital Signs Pulse Ox 85 01/12/17 08:33 - Physical Exam Narrative exam: Frail elderly -[place] male lying in bed in acute respiratory distress HEENT: Bitemporal wasting, Unco-operative with examining his eyes, dry oral mucous membranes Neck: no venous distention CVS: S1S2 RRR with no murmur, rub or gallop Chest: Coarse breath sounds bilaterally which rhonchi Abdomen: Scaphoid, soft, nontender, no organomegaly, bowel sounds are present Extremities: No edema. Muscle wasting Skin dry and wrinkled Neuro: Opens eyes to stimulation, nonverbal, not following commands Results - Lab Results 01/13/17 02:00 01/13/17 02:00 Most recent lab results Calcium 9.0 mg/dL (8.4-10.2) 01/13/17 02:00 Assessment and Plan - Patient Problems (1) Vasomotor nephropathy Current Visit: Yes Status: Acute Plan to address problem: Continue volume repletion. Quantify proteinuria. Check urine Eosinophils. Follow-up renal ultrasound. Follow up electrolytes and renal function (2) Hypernatremia Current Visit: Yes Status: Acute Plan to address problem: Continue free water replacement. Unfortunately need to keep some saline because of low blood pressure. Consider NG tube if family agreeable and giving free water via feeding tube (3) Acute metabolic encephalopathy Current Visit: Yes Status: Acute Plan to address problem: Follow-up mental status with Volume repletion and antibiotics. Hopefully status to improve (4) Bilateral pneumonia Current Visit: Yes Status: Acute Qualifiers: Pneumonia type: P Aspiration pneumonia type: A Lung location: L Plan to address problem: Continue antibiotics appropriately adjusted to the degree of renal function (5) Transaminasemia Current Visit: Yes Status: Acute Plan to address problem: Follow-up liver function tests. Check hepatitis profile (6) Alzheimer's dementia Current Visit: Yes Status: Acute Qualifiers: Alzheimer's disease onset: A Dementia behavioral disturbance: D Plan to address problem: Continue treatment (7) Hypotension Current Visit: Yes Status: Acute Qualifiers: Hypotension type: H Trimester: T Plan to address problem: Continue volume repletion and follow blood pressure. Hypotensive medications have been stopped (8) Thrombocytopenia Current Visit: Yes Status: Acute Plan to address problem: Unclear what patient's baseline is. Possibly related to sepsis or medications. Follow-up platelet counts. Consider hematology consult especially if worsening (9) Acidosis, metabolic Current Visit: Yes Status: Acute Plan to address problem: Anion gap metabolic acidosis question lactic acidosis question ketoacidosis
[2017-01-13 23:15] LABS: BUN/Creatinine Ratio 37.82; Calcium 8.6 mg/dL (8.4-10.2); Chloride 114.3 mmol/L (98-107); Potassium 4.3 mmol/L (3.6-5.0)
[2017-01-14] MEDS: DUONEB *Not for PRN Use IH SCH ×4 (02:27→20:50)
[2017-01-14] MEDS ORDERED: PROVENTIL IH PRN (04:13)
--- NOTE | 2017-01-14 04:17 | Event Note ---
Date: 01/14/17 Code MET was called on patient because of low oxygen saturation, the nurse noted that patient was congested for the code met was called and respiratory therapy was attempting to suction patient but was unsuccessful. Patient was subsequently suctioned and was started on 100% oxygen by mask with O2 sat coming up to 96%. Pressure was giving breathing treatments and O2 sats remained in the upper 90s. Patient's ABG showed pH above 7.45 with O2 level above 200. Patient's 3 sets of troponin levels were elevated, also lactic acid level was elevated. Cardiology consult was put on patient for this morning with because of elevated troponin levels and respiratory therapist was instructed to continue breathing treatment with DuoNeb every 6 hours.
[2017-01-14] MEDS: D5NS 0.2% 1,000 ML IV SCH (05:09)
[2017-01-14] MEDS: HEPARIN SUB-Q SCH ×3 (05:12→22:59)
[2017-01-14 05:59] LABS: Hematocrit 32.4 % (35.5-45.6); Mean Corpuscular HGB Conc 34 % (32-34); Mean Corpuscular Hemoglobin 29 pg (28-32); Mean Corpuscular Volume 84 fl (84-94); Red Blood Count 3.87 M/mm3 (3.65-5.03); Red Cell Distribution Width 16.9 % (13.2-15.2); White Blood Count 7.7 K/mm3 (4.5-11.0)
[2017-01-14 06:09] LABS: Platelet Count 83 K/mm3 (140-440)
[2017-01-14 06:16] LABS: BUN/Creatinine Ratio 37.82; Calcium 8.4 mg/dL (8.4-10.2); Chloride 114.9 mmol/L (98-107); Magnesium 2.8 mg/dL (1.7-2.3); Phosphorous 5.2 mg/dL (2.5-4.5)
[2017-01-14 06:20] LABS: Albumin 2.8 g/dL (3.9-5); Albumin/Globulin Ratio 0.9 %; Bilirubin,Direct 0.6 mg/dL (0-0.2); Bilirubin,Indirect 0.5 mg/dL; Bilirubin,Total 1.1 mg/dL (0.1-1.2); Total Protein 5.8 g/dL (6.3-8.2)
[2017-01-14 06:48] LABS: ISTAT Base Excess -8; ISTAT HCO3 15.5; ISTAT PCO2 20.8 (35-45); ISTAT PH 7.481 (7.35-7.45); ISTAT PO2 265 (80-105); ISTAT SO2 100; ISTAT TCO2 16
[2017-01-14 06:57] LABS: Basophils % (Manual) 0 % (0.0-1.8); Blastocytes % (Manual) 0 %; Eosinophils % (Manual) 0 % (0.0-4.3)
[2017-01-14 06:58] LABS: Macrocytosis Few
[2017-01-14 06:59] LABS: Crenated RBC Few; Diff Status Complete; Platelet Estimate Appears Decreased; Polychromasia Few; Tear Drop Cells Few
[2017-01-14] MEDS ORDERED: NON-FORMULARY (Rosuvastatin (Nf) 20 MG) PO SCH (10:00)
[2017-01-14] MEDS ORDERED: NON-FORMULARY (Memantine Hcl [Namenda Xr] 28 MG) PO SCH (10:00)
[2017-01-14] MEDS: NAMENDA PO SCH ×2 (10:59→22:59)
[2017-01-14] MEDS: PEPCID IV SCH (10:59)
--- NOTE | 2017-01-14 12:05 | Consultation ---
History of Present Illness Consult date: 01/14/17 Requesting physician: ALEXIA COE Consult reason: elevated troponin History of present illness: The pt is a 81 YO male with a past medical history significant for HTN, HLP, pre -diabetes, prostate CA, s/p prostatectomy in 1999 and Alzheimer's disease ( since 2000). He is previously unknown to our practice. He is nonverbal and confused on evaluation (this is his baseline per his daughter) and thus HPI is obtained per the records and per pt's daughter at bedside. Pt presented with c/ o SOB and AMS. Family members also note patient has not been breathing right for a few days. He was then found unresponsive on the floor. Following admission, pt was found to have acute respiratory failure, bilateral PNA, lactic acidosis, acute renal failure, mild rhabdomyolysis, dehydration, hypernatremia and thrombocytopenia. Pt was also found to have elevated troponins and thus cardiology has been consulted. Past History Past Medical History: cancer (prostate), hypertension, hyperlipidemia, other ( Alzheimer's dementia) Past Surgical History: Other (prostate surgery in 1999) Social history: lives with family. denies: smoking, alcohol abuse, prescription drug abuse Family history: other Medications and Allergies Allergies Allergy/AdvReac Type Severity Reaction Status Date / Time No Known Allergies Allergy Verified 05/09/14 13:30 Home Medications Medication Instructions Recorded Confirmed Last Taken Type Acetaminophen/Codeine [Tylenol 1 tab PO TID PRN 01/12/17 01/12/17 Unknown History /Codeine # 3 tab] Ketoconazole 2% [Nizoral] 1 applicatio TP QDAY 01/12/17 01/12/17 Unknown History Memantine HCl [Namenda Xr] 28 mg PO DAILY 01/12/17 01/12/17 Unknown History Mirtazapine [Remeron] 15 mg PO HS 01/12/17 01/12/17 Unknown History Rosuvastatin (Nf) [Crestor] 20 mg PO DAILY 01/12/17 01/12/17 Unknown History Active Meds: Active Medications Acetaminophen (Tylenol) 650 mg PO Q4H PRN PRN Reason: Pain MILD(1-3)/Fever >100.5/DO Last Admin: 01/13/17 17:56 Dose: 650 mg Albuterol (Proventil) 2.5 mg IH PRN PRN PRN Reason: Shortness Of Breath Last Admin: 01/14/17 04:22 Dose: 2.5 mg Albuterol/Ipratropium (Duoneb *Not For Prn Use*) 1 ampul IH Q6HRT [facility] Last Admin: 01/14/17 08:42 Dose: Not Given Atorvastatin Calcium (Lipitor) 40 mg PO QHS [facility] Last Admin: 01/13/17 21:00 Dose: Not Given Bisacodyl (Dulcolax) 10 mg [place] QDAY PRN PRN Reason: Constipation unrelieved by MOM Famotidine (Pepcid) 20 mg IV QDAY [facility] Last Admin: 01/14/17 10:59 Dose: 20 mg Heparin Sodium (Porcine) (Heparin) 5,000 unit SUB-Q Q8HR [facility] Last Admin: 01/14/17 05:12 Dose: 5,000 unit Azithromycin 500 mg/ Sodium (Chloride) 250 mls @ 250 mls/hr IV Q24H [facility] Last Admin: 01/13/17 15:41 Dose: 250 mls/hr Ceftriaxone Sodium (Rocephin/Ns 1 Gm/50 Ml) 1 gm in 50 mls @ 100 mls/hr IV Q24H [facility] PRN Reason: Protocol Last Admin: 01/13/17 17:57 Dose: 100 mls/hr Sodium Chloride 38.48 meq/ (Dextrose) 1,009.62 mls @ 100 mls/hr IV DIRECT [facility] Last Admin: 01/13/17 15:23 Dose: 100 mls/hr Dextrose/Sodium Chloride (D5ns 0.2%) 1,000 mls @ 100 mls/hr IV DIRECT [facility] Last Admin: 01/14/17 05:09 Dose: 100 mls/hr Memantine (Namenda) 10 mg PO Q12HR [facility] Last Admin: 01/14/17 10:59 Dose: Not Given Mirtazapine (Remeron) 15 mg PO HS [facility] Last Admin: 01/13/17 21:00 Dose: Not Given Ondansetron HCl (Zofran) 4 mg IV Q8H PRN PRN Reason: N/V unrelieved by Reglan Oxycodone/Acetaminophen (Percocet 5/325) 1 tab PO Q6H PRN PRN Reason: Pain, Moderate (4-6) Review of Systems ROS unobtainable: due to mental status Physical Examination Vital Signs Pulse Ox 85 01/12/17 08:33 General appearance: other (agitated) HEENT: Positive: PERRL, Normocephaly, Mucus Membranes Moist Neck: Positive: neck supple, trachea midline Cardiac: Positive: S1/S2, Diastolic Murmur, Tachycardia Lungs: Positive: Rhonchi, Oxygen Neuro: Positive: Other (deferred; nonverbal, agitated, and disoriented) Abdomen: Positive: Soft, Active Bowel Sounds. Negative: Tender Skin: Positive: Clear. Negative: Rash, Wound Musculoskeletal: No Fluid Collection, No Pain, Normal Range of Motion Extremities: Absent: edema Results 01/14/17 05:33 01/14/17 05:33 Cardiac Enzymes 01/14/17 Range/Units 05:33 AST 89 H (5-40) units/L CBC 01/14/17 Range/Units 05:33 WBC 7.7 (4.5-11.0) K/mm3 RBC 3.87 (3.65-5.03) M/mm3 Hgb 11.0 L (11.8-15.2) gm/dl Hct 32.4 L (35.5-45.6) % Plt Count 83 L (140-440) K/mm3 Comprehensive Metabolic Panel 01/13/17 01/14/17 01/14/17 Range/Units 22:39 05:33 05:33 Sodium 154 H 153 H (137-145) mmol/L Potassium 4.3 4.0 (3.6-5.0) mmol/L Chloride 114.3 H 114.9 H (98-107) mmol/L Carbon Dioxide 15 L 15 L (22-30) mmol/L BUN 87 H 87 H (9-20) mg/dL Creatinine 2.3 H 2.3 H (0.8-1.5) mg/dL Glucose 156 H 183 H (75-100) mg/dL Calcium 8.6 8.4 (8.4-10.2) mg/dL Direct Bilirubin 0.6 H (0-0.2) mg/dL Indirect Bilirubin 0.5 mg/dL AST 89 H (5-40) units/L ALT 116 H (7-56) units/L Alkaline Phosphatase 250 H (35-129) units/L Total Protein 5.8 L (6.3-8.2) g/dL Albumin 2.8 L (3.9-5) g/dL - Imaging and Cardiology Echo: pending EKG: image reviewed EKG interpretations - Telemetry EKG Rhythm: Sinus Tachycardia - EKG Sinus rhythms and dysrhythmias: sinus tachycardia (HR 108) AV and intraventricular conduction: intraventricular conducti Repolarization changes or abnormalities: nonspecific abnormality, ST segment, and/or T wave Assessment and Plan Assessment: Bilateral PNA / lactic acidosis / sepsis / ? septic shock Mild rhabdomyolysis NSTEMI type II Cardiomyopathy / diastolic dysfunction - EF <10%. Acute renal failure Acute respiratory failure AMS / encephalopathy - head CT with NAF Sinus tachycardia / hypotension Thrombocytopenia Moderate AR / mild to moderate MR Moderate pulmonary HTN Acute rib fractures HTN HLP H/o prostate CA - s/p prostatectomy in 1999 Alzheimer's disease Plan: Echo reviewed - EF <10%, impaired relaxation, LA severely dilated, moderate AR, mild to moderate MR, moderate pulmonary HTN, RVSP 51mmHg, large pleural effusion. Repeat EKG. No ACEI/ARB at this time in setting of ARF. No BB at this time in setting of hypotension. No anti-platelet therapy at this time in setting of thrombocytopenia. Cont lipitor. IV abx per primary. Blood cultures and urine culture with no growth thus far. Recommend tx to ICU for close observation. D/w Dr. Oneil. Consider ischemic evaluation if/when medically stabilized. Will proceed with conservative cardiac management at this time given pt's age, advanced dementia, acute infection and multiple co-morbidities. Assessment and plan reviewed with pt's daughter at bedside. The patient has been seen in conjunction with Dr. Wooten who agrees with the assessment and plan of care.
[2017-01-14] MEDS ORDERED: ZOSYN/NS 3.375GM/50ML 3.375 GM/50 ML BAG IV SCH (14:00)
[2017-01-14] MEDS ORDERED: VANCOMYCIN/NS 1 GM/250 ML 1 GM/250 ML BAG IV SCH (14:00)
--- NOTE | 2017-01-14 14:05 | Progress Note ---
Assessment and Plan Acute respiratory failure - likely aspiration event with underlying PNA and CHF - cont nebs, IV ABX, neb - GET CXR, pulmonary consult Sepsis - mets the criteria with tachycardia, tachypnea and elevated lactate - follow cx, cont abx, trend lactate - change abx to vanc and zosyn Acute metabolic encephalopathy - likely from underlying, hypernatremia and SEAN - pt also has h/o dementia - will cont light hydration, will treat underlying cause CHF with systolic function 10% - cardiology following - reduce iv fluid rate - will give one dose of iv lasix 40 mg - hold ACEI and BB for hypotension Hypernatremia, likely from dehydration - cont hypotonic solution - follow BMP , nephrology consult Acute renal failure likely vasomotor nephropathy - cont iv fluid with reduced rate considering underlying CHF -Medical renal disease on renal US and nephrology following the patient Bilateral pneumonia - cont iv abx, change to vanc and zosyn - blood cx, negative History of prostate cancer - s/p surgery on 2000, no acute issue now Alzheimer dementia - supportive care - cont namenda when can take po Mild rhabdomyolysis - cont iv fluid, monitor CPK level Severe malnutrition - likely from poor oral intake - dietary consult when medically stable Thrombocytopenia - cont to monitor CBC - cautiously use heparin product - no aspirin for now Elevated troponin - could be from underlying SEAN and underlying systolic dysfunction - will cont to monitor, cardiology consulted - 2d echo showed EF of 10% - Ischemic workup when medically stable Rib fracture - appears acute on cxr, family denies any fall or trauma - supportive care with as needed pain management GI and DVT prophylaxis on pepcid, heparin Diet: NPO Code Status: DNR Brief history: The pt is a 81 YO male with a past medical history significant for HTN, HLP, prostate CA, s/p prostatectomy in 1999 and Alzheimer's disease ( since 2000) presenting with a chief complaint of altered mental status. Today the patient was found to be unresponsive on the floor was subsequently brought in to the ED for evaluation. Following admission, pt noted to have bilateral PNA on CXR, lactic acidosis, acute renal failure, mild rhabdomyolysis, dehydration, hypernatremia and thrombocytopenia. Radiological studies: CT scan of the head on 01/12/2017 showed advanced volume loss and chronic white matter changes, no acute intracranial process. Chest x-ray on admission showed acute left. Fractures possibly involving 6 through 8 ribs. Bibasilar opacities noted. Renal ultrasound on 01/13/2017 showed chronic renal parenchymal disease and left renal cyst. Chest x-ray today shows mild pulmonary venous congestion and small bilateral pleural effusion. Microbiology 01/12/17 10:01 Peripheral/Venous Blood Culture - Preliminary NO GROWTH AFTER 72 HOURS 01/12/17 12:08 Urine,[place] Urine Culture - Final NO GROWTH AFTER 48 HOURS 01/12/17 11:59 Peripheral/Venous Blood Culture - Preliminary NO GROWTH AFTER 48 HOURS Subjective Date of service: 01/14/17 Interval history: Pt seen and examined Appears more lethargic today, on NRB noted o/n event Discussed plan of care at bedside with family, they wish for DNR considering pt' s underlying progressive dementia and multiple comorbidities Objective - Exam Narrative Exam: GENERAL: This is elderly malnurished AAM lying on bed. Does not respond to any commend. will open eyes and make moaning sound with verbal commend. Nonverbal HEENT: Normocephalic. Atraumatic. No conjunctival congestion or icterus. Patient has very dry mucous membranes. External auditory canal and nares patent bilaterally. NECK: Supple. Trachea midline. CHEST/LUNGS: coarse BS to auscultated bilaterally. There is moderate respiratory distress noted, breathing lbored. on NRB HEART/CARDIOVASCULAR: tachycardic. PMI at the apex. There is no gallop rub or murmur. ABDOMEN: Abdomen is soft, nontender. Patient has normal bowel sounds. There is no abdominal distention. No organomagaly or rigidity. SKIN: There is no rash, no erythrema. There is no diaphoresis. cold and dry. NEUROLOGY: minimally responsive, does not follow commend MUSCULOSKELETAL: No joint effusion or tenderness. generalized muscle wasting. EXTRIMITY: No edema, cyanosis or clubbing. PSYCH: nonverbal, does not follow commend. - Constitutional Vitals: Vital Signs - 12hr 01/14/17 01/14/17 01/14/17 02:20 02:31 03:26 Temperature Pulse Rate 66 Pulse Rate [ 62 57 L Anterior Bilateral Throughout] Respiratory Rate Respiratory 20 22 Rate [Anterior Bilateral Throughout] Blood Pressure 147/93 [Left] O2 Sat by Pulse Oximetry 01/14/17 01/14/17 01/14/17 03:50 04:20 04:29 Temperature 98.4 F Pulse Rate 116 H Pulse Rate [ 57 L 63 Anterior Bilateral Throughout] Respiratory 24 Rate Respiratory 22 24 Rate [Anterior Bilateral Throughout] Blood Pressure 97/67 [Left] O2 Sat by Pulse 94 Oximetry 01/14/17 01/14/17 01/14/17 05:55 06:06 10:00 Temperature 99.6 F Pulse Rate 116 H 96 H Pulse Rate [ Anterior Bilateral Throughout] Respiratory 16 16 Rate Respiratory Rate [Anterior Bilateral Throughout] Blood Pressure 91/64 [Left] O2 Sat by Pulse 91 91 Oximetry - Labs CBC & Chem 7: 01/15/17 05:51 01/15/17 05:51 Labs: Abnormal lab results 01/13/17 01/13/17 01/13/17 Range/Units 13:20 17:24 22:39 Hgb (11.8-15.2) gm/dl Hct (35.5-45.6) % RDW (13.2-15.2) % Plt Count (140-440) K/mm3 Seg Neuts % (Manual) (40.0-70.0) % Lymphocytes % (Manual) (13.4-35.0) % Nucleated RBC % (0.0-0.9) % Lymphocytes # (Manual) (1.2-5.4) K/mm3 POC ABG pH (7.35-7.45) POC ABG pCO2 (35-45) POC ABG pO2 (80-105) Sodium 154 H (137-145) mmol/L Chloride 114.3 H (98-107) mmol/L Carbon Dioxide 15 L (22-30) mmol/L BUN 87 H (9-20) mg/dL Creatinine 2.3 H (0.8-1.5) mg/dL Glucose 156 H (75-100) mg/dL Lactic Acid (0.7-2.0) mmol/L Phosphorus (2.5-4.5) mg/dL Magnesium (1.7-2.3) mg/dL Direct Bilirubin (0-0.2) mg/dL AST (5-40) units/L ALT (7-56) units/L Alkaline Phosphatase (35-129) units/L Troponin T 1.230 H* 1.240 H* (0.00-0.029) ng/mL Total Protein (6.3-8.2) g/dL Albumin (3.9-5) g/dL Urine Creatinine (0.1-20.0) mg/dL Urine Total Protein (5-11.8) mg/dL 01/13/17 01/14/17 01/14/17 Range/Units 22:39 03:42 03:44 Hgb (11.8-15.2) gm/dl Hct (35.5-45.6) % RDW (13.2-15.2) % Plt Count (140-440) K/mm3 Seg Neuts % (Manual) (40.0-70.0) % Lymphocytes % (Manual) (13.4-35.0) % Nucleated RBC % (0.0-0.9) % Lymphocytes # (Manual) (1.2-5.4) K/mm3 POC ABG pH 7.481 H (7.35-7.45) POC ABG pCO2 20.8 L (35-45) POC ABG pO2 265 H (80-105) Sodium (137-145) mmol/L Chloride (98-107) mmol/L Carbon Dioxide (22-30) mmol/L BUN (9-20) mg/dL Creatinine (0.8-1.5) mg/dL Glucose (75-100) mg/dL Lactic Acid 6.80 H* (0.7-2.0) mmol/L Phosphorus (2.5-4.5) mg/dL Magnesium (1.7-2.3) mg/dL Direct Bilirubin (0-0.2) mg/dL AST (5-40) units/L ALT (7-56) units/L Alkaline Phosphatase (35-129) units/L Troponin T (0.00-0.029) ng/mL Total Protein (6.3-8.2) g/dL Albumin (3.9-5) g/dL Urine Creatinine 115.3 H (0.1-20.0) mg/dL Urine Total Protein 41 H (5-11.8) mg/dL 01/14/17 01/14/17 01/14/17 Range/Units 05:33 05:33 05:33 Hgb 11.0 L (11.8-15.2) gm/dl Hct 32.4 L (35.5-45.6) % RDW 16.9 H (13.2-15.2) % Plt Count 83 L (140-440) K/mm3 Seg Neuts % (Manual) 90.0 H (40.0-70.0) % Lymphocytes % (Manual) 6.0 L (13.4-35.0) % Nucleated RBC % 5.0 H (0.0-0.9) % Lymphocytes # (Manual) 0.5 L (1.2-5.4) K/mm3 POC ABG pH (7.35-7.45) POC ABG pCO2 (35-45) POC ABG pO2 (80-105) Sodium 153 H (137-145) mmol/L Chloride 114.9 H (98-107) mmol/L Carbon Dioxide 15 L (22-30) mmol/L BUN 87 H (9-20) mg/dL Creatinine 2.3 H (0.8-1.5) mg/dL Glucose 183 H (75-100) mg/dL Lactic Acid (0.7-2.0) mmol/L Phosphorus 5.20 H (2.5-4.5) mg/dL Magnesium 2.80 H (1.7-2.3) mg/dL Direct Bilirubin 0.6 H (0-0.2) mg/dL AST 89 H (5-40) units/L ALT 116 H (7-56) units/L Alkaline Phosphatase 250 H (35-129) units/L Troponin T (0.00-0.029) ng/mL Total Protein 5.8 L (6.3-8.2) g/dL Albumin 2.8 L (3.9-5) g/dL Urine Creatinine (0.1-20.0) mg/dL Urine Total Protein (5-11.8) mg/dL 01/14/17 Range/Units 05:33 Hgb (11.8-15.2) gm/dl Hct (35.5-45.6) % RDW (13.2-15.2) % Plt Count (140-440) K/mm3 Seg Neuts % (Manual) (40.0-70.0) % Lymphocytes % (Manual) (13.4-35.0) % Nucleated RBC % (0.0-0.9) % Lymphocytes # (Manual) (1.2-5.4) K/mm3 POC ABG pH (7.35-7.45) POC ABG pCO2 (35-45) POC ABG pO2 (80-105) Sodium (137-145) mmol/L Chloride (98-107) mmol/L Carbon Dioxide (22-30) mmol/L BUN (9-20) mg/dL Creatinine (0.8-1.5) mg/dL Glucose (75-100) mg/dL Lactic Acid 5.60 H* (0.7-2.0) mmol/L Phosphorus (2.5-4.5) mg/dL Magnesium (1.7-2.3) mg/dL Direct Bilirubin (0-0.2) mg/dL AST (5-40) units/L ALT (7-56) units/L Alkaline Phosphatase (35-129) units/L Troponin T (0.00-0.029) ng/mL Total Protein (6.3-8.2) g/dL Albumin (3.9-5) g/dL Urine Creatinine (0.1-20.0) mg/dL Urine Total Protein (5-11.8) mg/dL
[2017-01-14] MEDS: MORPHINE IV PRN ×2 (14:37→18:06)
--- NOTE | 2017-01-14 14:50 | XRay Report ---
AP CHEST: HISTORY: Aspiration, shortness of breath Compared to 01/12/17. There is mild cardiomegaly, mild pulmonary venous congestion and small bilateral pleural effusions. No convincing infiltrate. No pneumothorax. IMPRESSION: CHF.
[2017-01-14] MEDS ORDERED: VANCOMYCIN/NS 1 GM/250 ML 1 GM/250 ML BAG IV ONE (15:00)
[2017-01-14] MEDS ORDERED: LASIX IV ONE (15:00)
--- NOTE | 2017-01-14 15:18 | Progress Note ---
Assessment and Plan - Patient Problems (1) Vasomotor nephropathy Current Visit: Yes Status: Acute Plan to address problem: Continue volume repletion. Follow up urine studies. Follow-up renal ultrasound. Follow up electrolytes and renal function (2) Hypernatremia Current Visit: Yes Status: Acute Plan to address problem: Continue free water replacement. Unfortunately need to keep some saline because of low blood pressure. Consider NG tube if family agreeable and giving free water via feeding tube (3) Acute metabolic encephalopathy Current Visit: Yes Status: Acute Plan to address problem: Follow-up mental status with Volume repletion and antibiotics. Hopefully status to improve (4) Bilateral pneumonia Current Visit: Yes Status: Acute Qualifiers: Pneumonia type: P Aspiration pneumonia type: A Lung location: L Plan to address problem: Continue antibiotics appropriately adjusted to the degree of renal function (5) Transaminasemia Current Visit: Yes Status: Acute Plan to address problem: Follow-up liver function tests. Check hepatitis profile (6) Alzheimer's dementia Current Visit: Yes Status: Acute Qualifiers: Alzheimer's disease onset: A Dementia behavioral disturbance: D Plan to address problem: Continue treatment (7) Hypotension Current Visit: Yes Status: Acute Qualifiers: Hypotension type: H Trimester: T Plan to address problem: Continue volume repletion and follow blood pressure. Hypotensive medications have been stopped (8) Thrombocytopenia Current Visit: Yes Status: Acute Plan to address problem: Unclear what patient's baseline is. Possibly related to sepsis or medications. Follow-up platelet counts. Consider hematology consult especially if worsening (9) Acidosis, metabolic Current Visit: Yes Status: Acute Plan to address problem: Anion gap metabolic acidosis secondary to lactic acidosis 4 Subjective Date of service: 01/14/17 Principal diagnosis: hyponatremia, acute kidney injury Interval history: Patient seen lying in bed. Dyspneic at rest. Family at bedside. Objective - Exam Narrative Exam: Frail elderly -[place] male lying in bed in acute respiratory distress HEENT: Bitemporal wasting, Unco-operative with examining his eyes, dry oral mucous membranes Neck: no venous distention CVS: S1S2 RRR with no murmur, rub or gallop Chest: Coarse breath sounds bilaterally which rhonchi Abdomen: Scaphoid, soft, nontender, no organomegaly, bowel sounds are present Extremities: No edema. Muscle wasting Skin dry and wrinkled Neuro: Does not open eyes to stimulation, nonverbal, not following commands - Vital Signs Vital signs: Vital Signs - 12hr 01/14/17 01/14/17 01/14/17 03:26 03:50 04:20 Temperature 98.4 F Pulse Rate 66 116 H Pulse Rate [ 57 L Anterior Bilateral Throughout] Respiratory 24 Rate Respiratory 22 Rate [Anterior Bilateral Throughout] Blood Pressure 147/93 97/67 [Left] O2 Sat by Pulse 94 Oximetry 01/14/17 01/14/17 01/14/17 04:29 05:55 06:06 Temperature 99.6 F Pulse Rate 116 H 96 H Pulse Rate [ 63 Anterior Bilateral Throughout] Respiratory 16 Rate Respiratory 24 Rate [Anterior Bilateral Throughout] Blood Pressure 91/64 [Left] O2 Sat by Pulse 91 Oximetry 01/14/17 01/14/17 10:00 15:10 Temperature Pulse Rate Pulse Rate [ 75 Anterior Bilateral Throughout] Respiratory 16 Rate Respiratory 16 Rate [Anterior Bilateral Throughout] Blood Pressure [Left] O2 Sat by Pulse 91 Oximetry - Lab 01/14/17 05:33 01/14/17 05:33 Most recent lab results Calcium 8.4 mg/dL (8.4-10.2) 01/14/17 05:33 Phosphorus 5.20 mg/dL (2.5-4.5) H 01/14/17 05:33 Magnesium 2.80 mg/dL (1.7-2.3) H 01/14/17 05:33 Urine Creatinine 115.3 mg/dL (0.1-20.0) H 01/14/17 03:44 Urine Sodium 18 mEq/L 01/14/17 03:44 Urine Total Protein 41 mg/dL (5-11.8) H 01/14/17 03:44
[2017-01-14] MEDS: ZOSYN/NS 2.25 GM/50ML 2.25 GM/50 ML BAG IV SCH (18:06)
[2017-01-14] MEDS: REMERON PO SCH (22:59)
[2017-01-15] MEDS: MORPHINE IV PRN ×2 (00:15→15:23)
[2017-01-15] MEDS: D5NS 0.2% 1,000 ML IV SCH ×4 (00:16→22:22)
[2017-01-15] MEDS: ZOSYN/NS 2.25 GM/50ML 2.25 GM/50 ML BAG IV SCH ×4 (00:19→22:22)
[2017-01-15] MEDS: DUONEB *Not for PRN Use IH SCH ×6 (00:38→20:32)
[2017-01-15] MEDS: HEPARIN SUB-Q SCH ×3 (06:17→21:37)
[2017-01-15 06:32] LABS: Hematocrit 33.1 % (35.5-45.6); Mean Corpuscular HGB Conc 33 % (32-34); Mean Corpuscular Hemoglobin 28 pg (28-32); Mean Corpuscular Volume 86 fl (84-94); Red Blood Count 3.86 M/mm3 (3.65-5.03); Red Cell Distribution Width 17.4 % (13.2-15.2); White Blood Count 10.8 K/mm3 (4.5-11.0)
[2017-01-15 06:41] LABS: Platelet Count 70 K/mm3 (140-440)
[2017-01-15 06:56] LABS: Albumin 2.8 g/dL (3.9-5); BUN/Creatinine Ratio 35.9; Bilirubin,Total 0.8 mg/dL (0.1-1.2); Calcium 8.2 mg/dL (8.4-10.2); Chloride 111.9 mmol/L (98-107); Total Protein 5.7 g/dL (6.3-8.2)
[2017-01-15 08:58] LABS: Anisocytosis Few; Basophils % (Manual) 0 % (0.0-1.8); Blastocytes % (Manual) 0 %; Diff Status Complete; Eosinophils % (Manual) 0 % (0.0-4.3); Poikilocytosis Few; Polychromasia Few
--- NOTE | 2017-01-15 10:08 | Progress Note ---
Assessment and Plan - Patient Problems (1) Vasomotor nephropathy Current Visit: Yes Status: Acute Plan to address problem: Kidney disease a bit better. Continue volume repletion. Follow up electrolytes and renal function (2) Hypernatremia Current Visit: Yes Status: Acute Plan to address problem: Sodium is not improving. Continue free water replacement. Consider NG tube if family agreeable and giving free water via feeding tube (3) Acute metabolic encephalopathy Current Visit: Yes Status: Acute Plan to address problem: Follow-up mental status with Volume repletion and antibiotics. Hopefully status to improve (4) Bilateral pneumonia Current Visit: Yes Status: Acute Qualifiers: Pneumonia type: P Aspiration pneumonia type: A Lung location: L Plan to address problem: Continue antibiotics appropriately adjusted to the degree of renal function (5) Transaminasemia Current Visit: Yes Status: Acute Plan to address problem: Hepatitis profile negative. Liver function tests improving slowly. Continue to follow-up liver function tests. (6) Alzheimer's dementia Current Visit: Yes Status: Acute Qualifiers: Alzheimer's disease onset: A Dementia behavioral disturbance: D Plan to address problem: Continue treatment (7) Hypotension Current Visit: Yes Status: Acute Qualifiers: Hypotension type: H Trimester: T Plan to address problem: Continue volume repletion and follow blood pressure. Hypotensive medications have been stopped (8) Thrombocytopenia Current Visit: Yes Status: Acute Plan to address problem: Unclear what patient's baseline is. Possibly related to sepsis or medications. Platelet count is just a bit lower today. Follow-up platelet counts. Consider hematology consult especially if worsening (9) Acidosis, metabolic Current Visit: Yes Status: Acute Plan to address problem: Anion gap metabolic acidosis secondary to lactic acidosis 4 Subjective Date of service: 01/15/17 Principal diagnosis: hyponatremia, acute kidney injury Interval history: Patient seen lying in bed. On BiPAP. Not communicating. Family at bedside. Objective - Exam Narrative Exam: Frail elderly -Citizen Of [place] male lying in bed in acute respiratory distress HEENT: Bitemporal wasting, Unco-operative with examining his eyes, dry oral mucous membranes Neck: no venous distention CVS: S1S2 RRR with no murmur, rub or gallop Chest: Coarse breath sounds with bilateral rhonchi Abdomen: Scaphoid, soft, nontender, no organomegaly, bowel sounds are present Extremities: No edema. Muscle wasting Skin dry and wrinkled Neuro: Does not open eyes to stimulation, nonverbal, not following commands - Vital Signs Vital signs: Vital Signs - 12hr 01/14/17 01/15/17 01/15/17 22:28 00:15 00:25 Temperature 98 F Pulse Rate 96 H Pulse Rate [ 104 H Anterior Bilateral Throughout] Respiratory 28 H Rate Respiratory 25 H 22 Rate [Anterior Bilateral Throughout] Blood Pressure 84/59 [Left] O2 Sat by Pulse Oximetry 01/15/17 01/15/17 01/15/17 00:35 01:00 04:30 Temperature 99 F Pulse Rate 104 H 97 H Pulse Rate [ 95 H Anterior Bilateral Throughout] Respiratory 25 H 24 Rate Respiratory 21 Rate [Anterior Bilateral Throughout] Blood Pressure 84/58 [Left] O2 Sat by Pulse 100 Oximetry 01/15/17 01/15/17 01/15/17 04:38 04:40 05:26 Temperature 97.8 F Pulse Rate 95 H 109 H Pulse Rate [ 96 H Anterior Bilateral Throughout] Respiratory 21 22 Rate Respiratory 20 Rate [Anterior Bilateral Throughout] Blood Pressure 100/68 [Left] O2 Sat by Pulse 100 Oximetry - Lab 01/15/17 05:51 01/15/17 05:51 Most recent lab results Calcium 8.2 mg/dL (8.4-10.2) L 01/15/17 05:51 Phosphorus 5.20 mg/dL (2.5-4.5) H 01/14/17 05:33 Magnesium 2.80 mg/dL (1.7-2.3) H 01/14/17 05:33 Urine Creatinine 115.3 mg/dL (0.1-20.0) H 01/14/17 03:44 Urine Sodium 18 mEq/L 01/14/17 03:44 Urine Total Protein 41 mg/dL (5-11.8) H 01/14/17 03:44
[2017-01-15] MEDS: PEPCID IV SCH (11:04)
[2017-01-15] MEDS: NAMENDA PO SCH ×2 (11:04→21:09)
--- NOTE | 2017-01-15 11:16 | Consultation ---
History of Present Illness Consult date: 01/15/17 Reason for consult: pneumonia, other (respiratory failure) History of present illness: Call in to evaluate case of a 81-year-old -[place] male, admitted 4 days ago with clinical picture of dehydration, pneumonia. Patient came in with future multiple medical problems current prostate disease, hypertension, advanced dementia. The family he had altered behavior with altered mental status and he was coughing. No vomiting reported or aspiration events. Patient has been started on antibiotics but for the past 48 hours he has shows signs of persistent hypotension associated with lactic acidemia. Yesterday, he became more distress and less responsive and was initiated on more aggressive neb treatments and noninvasive ventilation. Review of the patient x-ray showed initially subsegmental atelectasis in the right lower lobe versus infiltrate which has progressed to bilateral infiltrates and small pleural effusions on yesterday film. He has been coughing but no vomiting reported by the patient's family. Currently the patient is on BiPAP, still partially responsive. CODE STATUS is DO NOT RESUSCITATE. Physical family denies prior history of pneumonia or COPD. He is a former smoker but quit over 40 years ago Past History Past Medical History: cancer (prostate), hypertension, hyperlipidemia, other ( Alzheimer's dementia) Past Surgical History: Other (prostate surgery in 1999) Social history: lives with family. denies: smoking, alcohol abuse, prescription drug abuse Family history: other Medications and Allergies Allergies Allergy/AdvReac Type Severity Reaction Status Date / Time No Known Allergies Allergy Verified 05/09/14 13:30 Home Medications Medication Instructions Recorded Confirmed Last Taken Type Acetaminophen/Codeine [Tylenol 1 tab PO TID PRN 01/12/17 01/12/17 Unknown History /Codeine # 3 tab] Ketoconazole 2% [Nizoral] 1 applicatio TP QDAY 01/12/17 01/12/17 Unknown History Memantine HCl [Namenda Xr] 28 mg PO DAILY 01/12/17 01/12/17 Unknown History Mirtazapine [Remeron] 15 mg PO HS 01/12/17 01/12/17 Unknown History Rosuvastatin (Nf) [Crestor] 20 mg PO DAILY 01/12/17 01/12/17 Unknown History Active Meds: Active Medications Acetaminophen (Tylenol) 650 mg PO Q4H PRN PRN Reason: Pain MILD(1-3)/Fever >100.5/DO Last Admin: 01/13/17 17:56 Dose: 650 mg Albuterol (Proventil) 2.5 mg IH PRN PRN PRN Reason: Shortness Of Breath Last Admin: 01/14/17 04:22 Dose: 2.5 mg Albuterol/Ipratropium (Duoneb *Not For Prn Use*) 1 ampul IH Q4HRT [facility] Last Admin: 01/15/17 07:13 Dose: 1 ampul Atorvastatin Calcium (Lipitor) 40 mg PO QHS [facility] Last Admin: 01/14/17 22:59 Dose: Not Given Bisacodyl (Dulcolax) 10 mg [place] QDAY PRN PRN Reason: Constipation unrelieved by MOM Famotidine (Pepcid) 20 mg IV QDAY [facility] Last Admin: 01/15/17 11:04 Dose: 20 mg Heparin Sodium (Porcine) (Heparin) 5,000 unit SUB-Q Q8HR [facility] Last Admin: 01/15/17 06:17 Dose: 5,000 unit Dextrose/Sodium Chloride (D5ns 0.2%) 1,000 mls @ 42 mls/hr IV DIRECT [facility] Last Admin: 01/15/17 11:03 Dose: 100 mls/hr Piperacillin Sod/Tazobactam Sod (Zosyn/Ns 2.25 Gm/50ml) 2.25 gm in 50 mls @ 100 mls/hr IV Q8H PANCHO PRN Reason: Protocol Last Admin: 01/15/17 11:03 Dose: 100 mls/hr Memantine (Namenda) 10 mg PO Q12HR [facility] Last Admin: 01/15/17 11:04 Dose: Not Given Methylprednisolone Sodium Succinate (Solu-Medrol) 40 mg IV Q8H [facility] Last Admin: 01/15/17 06:16 Dose: 40 mg Mirtazapine (Remeron) 15 mg PO HS [facility] Last Admin: 01/14/17 22:59 Dose: Not Given Morphine Sulfate (Morphine) 2 mg IV Q3H PRN PRN Reason: Pain, Moderate (4-6) Last Admin: 01/15/17 00:15 Dose: 2 mg Ondansetron HCl (Zofran) 4 mg IV Q8H PRN PRN Reason: N/V unrelieved by Reglan Oxycodone/Acetaminophen (Percocet 5/325) 1 tab PO Q6H PRN PRN Reason: Pain, Moderate (4-6) Review of Systems ROS unobtainable: due to mental status Physical Examination Vital signs: Vital Signs Pulse Ox 85 01/12/17 08:33 General appearance: lethargic, other (on BiPAP support.Thin) Eyes: non-icteric ENT: oropharynx moist Neck: supple, no JVD Effort: mildly labored Ascultation: Bilateral: diminished breath sounds Percussion: Bilateral: not dull Cardiovascular: regular rate and rhythm Gastrointestinal: normoactive bowel sounds, non-distended Integumentary: normal Extremities: no cyanosis, no edema non-focal exam, CN II-XII normal, unable to assess, other (movements spontaneously) Results - Laboratory Findings CBC and BMP: 01/15/17 05:51 01/15/17 05:51 ABG POC ABG pH 7.481 (7.35-7.45) H 01/14/17 03:42 POC ABG pCO2 20.8 (35-45) L 01/14/17 03:42 POC ABG pO2 265 (80-105) H 01/14/17 03:42 POC ABG HCO3 15.5 01/14/17 03:42 POC ABG Total CO2 16 01/14/17 03:42 POC ABG O2 Sat 100 01/14/17 03:42 PT/INR, D-dimer PT 18.6 Sec. (12.2-14.9) H 01/12/17 09:28 INR 1.47 (0.87-1.13) H 01/12/17 09:28 Abnormal lab findings: Abnormal Labs 01/12/17 01/12/17 01/13/17 16:45 21:16 00:40 Hgb Hct RDW Plt Count Lymph % (Auto) Lymph # Seg Neutrophils % Seg Neuts % (Manual) Lymphocytes % (Manual) Nucleated RBC % Seg Neutrophils # Seg Neutrophils # Man Lymphocytes # (Manual) POC ABG pH POC ABG pCO2 POC ABG pO2 Sodium 155 H 154 H Chloride 113.5 H 115.6 H Carbon Dioxide 16 L 11 L BUN 79 H 78 H Creatinine 2.0 H 2.0 H Glucose 109 H Lactic Acid Calcium Phosphorus Magnesium Total Bilirubin Direct Bilirubin AST ALT Alkaline Phosphatase Total Creatine Kinase Troponin T 1.230 H* D Total Protein Albumin Urine Creatinine Urine Total Protein 01/13/17 01/13/17 01/13/17 02:00 02:00 05:51 Hgb Hct RDW 17.7 H Plt Count 96 L Lymph % (Auto) 5.0 L Lymph # 0.5 L Seg Neutrophils % 90.0 H Seg Neuts % (Manual) Lymphocytes % (Manual) Nucleated RBC % Seg Neutrophils # 9.2 H Seg Neutrophils # Man Lymphocytes # (Manual) POC ABG pH POC ABG pCO2 POC ABG pO2 Sodium 155 H Chloride 115.0 H Carbon Dioxide 15 L BUN 81 H Creatinine 2.3 H Glucose 139 H Lactic Acid Calcium Phosphorus Magnesium Total Bilirubin 1.50 H Direct Bilirubin AST 156 H ALT 114 H Alkaline Phosphatase 227 H Total Creatine Kinase Troponin T 1.060 H* Total Protein 6.2 L Albumin 3.2 L Urine Creatinine Urine Total Protein 01/13/17 01/13/17 01/13/17 13:20 17:24 22:39 Hgb Hct RDW Plt Count Lymph % (Auto) Lymph # Seg Neutrophils % Seg Neuts % (Manual) Lymphocytes % (Manual) Nucleated RBC % Seg Neutrophils # Seg Neutrophils # Man Lymphocytes # (Manual) POC ABG pH POC ABG pCO2 POC ABG pO2 Sodium 154 H Chloride 114.3 H Carbon Dioxide 15 L BUN 87 H Creatinine 2.3 H Glucose 156 H Lactic Acid Calcium Phosphorus Magnesium Total Bilirubin Direct Bilirubin AST ALT Alkaline Phosphatase Total Creatine Kinase Troponin T 1.230 H* 1.240 H* Total Protein Albumin Urine Creatinine Urine Total Protein 01/13/17 01/14/17 01/14/17 22:39 03:42 03:44 Hgb Hct RDW Plt Count Lymph % (Auto) Lymph # Seg Neutrophils % Seg Neuts % (Manual) Lymphocytes % (Manual) Nucleated RBC % Seg Neutrophils # Seg Neutrophils # Man Lymphocytes # (Manual) POC ABG pH 7.481 H POC ABG pCO2 20.8 L POC ABG pO2 265 H Sodium Chloride Carbon Dioxide BUN Creatinine Glucose Lactic Acid 6.80 H* Calcium Phosphorus Magnesium Total Bilirubin Direct Bilirubin AST ALT Alkaline Phosphatase Total Creatine Kinase Troponin T Total Protein Albumin Urine Creatinine 115.3 H Urine Total Protein 41 H 01/14/17 01/14/17 01/14/17 05:33 05:33 05:33 Hgb 11.0 L Hct 32.4 L RDW 16.9 H Plt Count 83 L Lymph % (Auto) Lymph # Seg Neutrophils % Seg Neuts % (Manual) 90.0 H Lymphocytes % (Manual) 6.0 L Nucleated RBC % 5.0 H Seg Neutrophils # Seg Neutrophils # Man Lymphocytes # (Manual) 0.5 L POC ABG pH POC ABG pCO2 POC ABG pO2 Sodium 153 H Chloride 114.9 H Carbon Dioxide 15 L BUN 87 H Creatinine 2.3 H Glucose 183 H Lactic Acid Calcium Phosphorus 5.20 H Magnesium 2.80 H Total Bilirubin Direct Bilirubin 0.6 H AST 89 H ALT 116 H Alkaline Phosphatase 250 H Total Creatine Kinase Troponin T Total Protein 5.8 L Albumin 2.8 L Urine Creatinine Urine Total Protein 01/14/17 01/14/17 01/15/17 05:33 05:33 05:51 Hgb 11.0 L Hct 33.1 L RDW 17.4 H Plt Count 70 L Lymph % (Auto) Lymph # Seg Neutrophils % Seg Neuts % (Manual) 86.0 H Lymphocytes % (Manual) 5.0 L Nucleated RBC % 2.0 H Seg Neutrophils # Seg Neutrophils # Man 9.3 H Lymphocytes # (Manual) 0.5 L POC ABG pH POC ABG pCO2 POC ABG pO2 Sodium Chloride Carbon Dioxide BUN Creatinine Glucose Lactic Acid 5.60 H* Calcium Phosphorus Magnesium Total Bilirubin Direct Bilirubin AST ALT Alkaline Phosphatase Total Creatine Kinase 1773 H Troponin T Total Protein Albumin Urine Creatinine Urine Total Protein 01/15/17 01/15/17 05:51 09:44 Hgb Hct RDW Plt Count Lymph % (Auto) Lymph # Seg Neutrophils % Seg Neuts % (Manual) Lymphocytes % (Manual) Nucleated RBC % Seg Neutrophils # Seg Neutrophils # Man Lymphocytes # (Manual) POC ABG pH POC ABG pCO2 POC ABG pO2 Sodium 148 H Chloride 111.9 H Carbon Dioxide 16 L BUN 79 H Creatinine 2.2 H Glucose 257 H Lactic Acid 6.00 H* Calcium 8.2 L Phosphorus Magnesium Total Bilirubin Direct Bilirubin AST 73 H ALT 119 H Alkaline Phosphatase 231 H Total Creatine Kinase 1277 H Troponin T Total Protein 5.7 L Albumin 2.8 L Urine Creatinine Urine Total Protein - Diagnostic Findings Chest x-ray: report reviewed, image reviewed Assessment and Plan Severe sepsis Shock, possibly multifactorial, septic and hypovolemic Pneumonia Acute on chronic kidney injury Alzheimer dementia Review cardiomyopathy with ejection fraction of 10% Recommendations Gentle fluid bolus, 250 mL 0.45% saline motion or 9% . Repeat cautiously as needed and monitor hypertension Continue with Zosyn Add Levaquin or azithromycin, also vancomycin adjusted to renal clearance Urinary Legionella and strep pneumoniae antigens Check blood cultures CSF management per cardiology I believe patient should be moved to the ICU for management of both shock and respiratory insufficiency. Currently DO NOT RESUSCITATE if conservative management is planned, we'll then continue with current care. I will favor BiPAP in favor high flow oxygen support on. Hypoxemia respiratory failure or the patient is at any recent vomiting. Plan of care was discussed with patient and nursing staff in detail. All questions answered. Critical care time was 35 minutes of [id number] evaluation and coordination of care
--- NOTE | 2017-01-15 11:59 | Progress Note ---
Assessment and Plan Multisystem organ failure Respiratory failure/Bilateral PNA Lactic acidosis Sepsis Cardiomyopathy EF <10%. Acute renal failure Thrombocytopenia Moderate AR / mild to moderate MR Moderate pulmonary HTN Acute rib fractures HTN HLP H/o prostate CA - s/p prostatectomy in 1999 Alzheimer's disease Plan: Patient is DO NOT RESUSCITATE No escalation of care We'll sign off for now Subjective Date of service: 01/15/17 Principal diagnosis: hyponatremia, acute kidney injury Interval history: Patient lying in bed with BiPAP on his entire family is seated around his bed. Objective Vital Signs Temp Pulse Pulse Resp Resp BP BP 01/15/17 05:26 97.8 F 109 H 22 100/68 01/15/17 04:40 96 H 20 01/15/17 04:38 95 H 21 01/15/17 04:30 95 H 21 01/15/17 01:00 99 F 97 H 24 84/58 01/15/17 00:35 104 H 25 H 01/15/17 00:25 22 01/15/17 00:15 104 H 25 H 01/14/17 22:28 98 F 96 H 28 H 84/59 01/14/17 21:05 98 H 20 84/59 01/14/17 20:52 96 H 20 01/14/17 20:51 96 H 22 01/14/17 17:49 98.9 F 20 91/63 01/14/17 16:20 84 20 01/14/17 15:21 82 17 01/14/17 15:10 75 16 01/14/17 13:00 105 H 01/14/17 12:10 104/77 Pulse Ox 01/15/17 05:26 100 01/15/17 04:40 01/15/17 04:38 01/15/17 04:30 01/15/17 01:00 100 01/15/17 00:35 01/15/17 00:25 01/15/17 00:15 01/14/17 22:28 01/14/17 21:05 01/14/17 20:52 01/14/17 20:51 01/14/17 17:49 99 01/14/17 16:20 01/14/17 15:21 01/14/17 15:10 01/14/17 13:00 01/14/17 12:10 - Physical Examination HEENT: Positive: PERRL, Normocephaly, Mucus Membranes Moist Neck: Positive: neck supple, trachea midline Cardiac: Positive: Tachycardia Lungs: Positive: Rhonchi, Other (coarse breath sounds on BiPAP) Neuro: Positive: Other (deferred; nonverbal, agitated, and disoriented) Abdomen: Positive: Soft, Active Bowel Sounds. Negative: Tender Skin: Positive: Clear. Negative: Rash, Wound Musculoskeletal: No Fluid Collection, No Pain, Normal Range of Motion Extremities: Absent: edema - Labs and Meds Cardiac Enzymes 01/15/17 Range/Units 05:51 AST 73 H (5-40) units/L CBC 01/15/17 Range/Units 05:51 WBC 10.8 (4.5-11.0) K/mm3 RBC 3.86 (3.65-5.03) M/mm3 Hgb 11.0 L (11.8-15.2) gm/dl Hct 33.1 L (35.5-45.6) % Plt Count 70 L (140-440) K/mm3 Comprehensive Metabolic Panel 01/15/17 Range/Units 05:51 Sodium 148 H (137-145) mmol/L Potassium 4.0 (3.6-5.0) mmol/L Chloride 111.9 H (98-107) mmol/L Carbon Dioxide 16 L (22-30) mmol/L BUN 79 H (9-20) mg/dL Creatinine 2.2 H (0.8-1.5) mg/dL Glucose 257 H (75-100) mg/dL Calcium 8.2 L (8.4-10.2) mg/dL AST 73 H (5-40) units/L ALT 119 H (7-56) units/L Alkaline Phosphatase 231 H (35-129) units/L Total Protein 5.7 L (6.3-8.2) g/dL Albumin 2.8 L (3.9-5) g/dL - Imaging and Cardiology EKG: image reviewed Echo: pending - EKG Sinus rhythms and dysrhythmias: sinus tachycardia (HR 108) AV and intraventricular conduction: intraventricular conducti Repolarization changes or abnormalities: nonspecific abnormality, ST segment, and/or T wave
--- NOTE | 2017-01-15 15:13 | Progress Note ---
Assessment and Plan Acute respiratory failure - likely aspiration event with underlying PNA and CHF - cont nebs, IV ABX, neb, as needed diuresis - follow CXR, pulmonary consulted Sepsis - mets the criteria with tachycardia, tachypnea and elevated lactate - follow cx, cont abx, trend lactate - changed abx to vanc and zosyn Acute metabolic encephalopathy - likely from underlying, hypernatremia and SEAN - pt also has h/o dementia - will cont light hydration, will treat underlying cause CHF with systolic function 10% - cardiology following - reduce iv fluid rate - s/p one dose of iv lasix 40 mg on 01/14/17 - hold ACEI and BB for hypotension Hypernatremia, likely from dehydration - cont hypotonic solution - follow BMP , nephrology following Acute renal failure likely vasomotor nephropathy - cont iv fluid with reduced rate considering underlying CHF -Medical renal disease on renal US and nephrology following the patient Bilateral pneumonia - cont iv abx, vanc and zosyn - blood cx, negative History of prostate cancer - s/p surgery on 2000, no acute issue now Alzheimer dementia - supportive care - cont namenda when can take po Mild rhabdomyolysis - cont iv fluid, monitor CPK level Severe malnutrition - likely from poor oral intake - dietary consult when medically stable Thrombocytopenia - cont to monitor CBC - cautiously use heparin product - no aspirin for now Elevated troponin - could be from underlying SEAN and underlying systolic dysfunction - will cont to monitor, cardiology consulted - 2d echo showed EF of 10% - Ischemic workup when medically stable Rib fracture - appears acute on cxr, family denies any fall or trauma - supportive care with as needed pain management GI and DVT prophylaxis on pepcid, heparin Diet: NPO now, will arrange for dobhoff Code Status: DNR Brief history: The pt is a 81 YO male with a past medical history significant for HTN, HLP, prostate CA, s/p prostatectomy in 1999 and Alzheimer's disease ( since 2000) presenting with a chief complaint of altered mental status. Today the patient was found to be unresponsive on the floor was subsequently brought in to the ED for evaluation. Following admission, pt noted to have bilateral PNA on CXR, lactic acidosis, acute renal failure, mild rhabdomyolysis, dehydration, hypernatremia and thrombocytopenia. Radiological studies: CT scan of the head on 01/12/2017 showed advanced volume loss and chronic white matter changes, no acute intracranial process. Chest x-ray on admission showed acute left. Fractures possibly involving 6 through 8 ribs. Bibasilar opacities noted. Renal ultrasound on 01/13/2017 showed chronic renal parenchymal disease and left renal cyst. Chest x-ray today shows mild pulmonary venous congestion and small bilateral pleural effusion. Microbiology 01/12/17 10:01 Peripheral/Venous Blood Culture - Preliminary NO GROWTH AFTER 72 HOURS 01/12/17 12:08 Urine,[place] Urine Culture - Final NO GROWTH AFTER 48 HOURS 01/12/17 11:59 Peripheral/Venous Blood Culture - Preliminary NO GROWTH AFTER 48 HOURS Subjective Date of service: 01/15/17 Principal diagnosis: hyponatremia, acute kidney injury Interval history: Pt seen and examined Appears more lethargic today, on NRB noted o/n event Discussed plan of care at bedside with family, discussed about dobhoff tube Family worried that pt might desats when dobhoff will be placed Objective - Exam Narrative Exam: GENERAL: This is elderly malnurished AAM lying on bed. Does not respond to any commend. does not open eyes and make moaning sound with verbal commend. Nonverbal HEENT: Normocephalic. Atraumatic. No conjunctival congestion or icterus. Patient has very dry mucous membranes. External auditory canal and nares patent bilaterally. NECK: Supple. Trachea midline. CHEST/LUNGS: coarse BS to auscultated bilaterally. There is moderate respiratory distress noted, breathing lbored. on NRB HEART/CARDIOVASCULAR: tachycardic. PMI at the apex. There is no gallop rub or murmur. ABDOMEN: Abdomen is soft, nontender. Patient has normal bowel sounds. There is no abdominal distention. No organomagaly or rigidity. SKIN: There is no rash, no erythrema. There is no diaphoresis. cold and dry. NEUROLOGY: minimally responsive, does not follow commend MUSCULOSKELETAL: No joint effusion or tenderness. generalized muscle wasting. EXTRIMITY: No edema, cyanosis or clubbing. PSYCH: nonverbal, does not follow commend. - Constitutional Vitals: Vital Signs - 12hr 01/15/17 01/15/17 01/15/17 04:30 04:38 04:40 Temperature Pulse Rate 95 H Pulse Rate [ 95 H 96 H Anterior Bilateral Throughout] Respiratory 21 Rate Respiratory 21 20 Rate [Anterior Bilateral Throughout] Blood Pressure [Left] O2 Sat by Pulse Oximetry 01/15/17 05:26 Temperature 97.8 F Pulse Rate 109 H Pulse Rate [ Anterior Bilateral Throughout] Respiratory 22 Rate Respiratory Rate [Anterior Bilateral Throughout] Blood Pressure 100/68 [Left] O2 Sat by Pulse 100 Oximetry - Labs CBC & Chem 7: 01/15/17 05:51 01/16/17 07:59 Labs: Abnormal lab results 01/14/17 01/15/17 01/15/17 Range/Units 05:33 05:51 05:51 Hgb 11.0 L (11.8-15.2) gm/dl Hct 33.1 L (35.5-45.6) % RDW 17.4 H (13.2-15.2) % Plt Count 70 L (140-440) K/mm3 Seg Neuts % (Manual) 86.0 H (40.0-70.0) % Lymphocytes % (Manual) 5.0 L (13.4-35.0) % Nucleated RBC % 2.0 H (0.0-0.9) % Seg Neutrophils # Man 9.3 H (1.8-7.7) K/mm3 Lymphocytes # (Manual) 0.5 L (1.2-5.4) K/mm3 Sodium 148 H (137-145) mmol/L Chloride 111.9 H (98-107) mmol/L Carbon Dioxide 16 L (22-30) mmol/L BUN 79 H (9-20) mg/dL Creatinine 2.2 H (0.8-1.5) mg/dL Glucose 257 H (75-100) mg/dL Lactic Acid (0.7-2.0) mmol/L Calcium 8.2 L (8.4-10.2) mg/dL AST 73 H (5-40) units/L ALT 119 H (7-56) units/L Alkaline Phosphatase 231 H (35-129) units/L Total Creatine Kinase 1773 H 1277 H (55-170) units/L Total Protein 5.7 L (6.3-8.2) g/dL Albumin 2.8 L (3.9-5) g/dL 01/15/17 Range/Units 09:44 Hgb (11.8-15.2) gm/dl Hct (35.5-45.6) % RDW (13.2-15.2) % Plt Count (140-440) K/mm3 Seg Neuts % (Manual) (40.0-70.0) % Lymphocytes % (Manual) (13.4-35.0) % Nucleated RBC % (0.0-0.9) % Seg Neutrophils # Man (1.8-7.7) K/mm3 Lymphocytes # (Manual) (1.2-5.4) K/mm3 Sodium (137-145) mmol/L Chloride (98-107) mmol/L Carbon Dioxide (22-30) mmol/L BUN (9-20) mg/dL Creatinine (0.8-1.5) mg/dL Glucose (75-100) mg/dL Lactic Acid 6.00 H* (0.7-2.0) mmol/L Calcium (8.4-10.2) mg/dL AST (5-40) units/L ALT (7-56) units/L Alkaline Phosphatase (35-129) units/L Total Creatine Kinase (55-170) units/L Total Protein (6.3-8.2) g/dL Albumin (3.9-5) g/dL
[2017-01-15] MEDS: REMERON PO SCH (21:09)
[2017-01-16] MEDS: DUONEB *Not for PRN Use IH SCH ×4 (02:20→20:01)
[2017-01-16] MEDS: HEPARIN SUB-Q SCH ×3 (06:27→23:02)
[2017-01-16] MEDS: ZOSYN/NS 2.25 GM/50ML 2.25 GM/50 ML BAG IV SCH ×3 (06:27→23:02)
[2017-01-16 08:31] LABS: Calcium 8.3 mg/dL (8.4-10.2); Chloride 108.6 mmol/L (98-107); Potassium 4.3 mmol/L (3.6-5.0)
--- NOTE | 2017-01-16 08:36 | Progress Note ---
Assessment and Plan - Patient Problems (1) Vasomotor nephropathy Current Visit: Yes Status: Acute Plan to address problem: Kidney disease worse this morning. Continue volume repletion. Follow up electrolytes and renal function. Need to start considering switching to palliative care (2) Hypernatremia Current Visit: Yes Status: Acute Plan to address problem: Sodium is a bit better. Continue free water replacement. (3) Acute metabolic encephalopathy Current Visit: Yes Status: Acute Plan to address problem: Follow-up mental status with Volume repletion and antibiotics. Hopefully status to improve (4) Bilateral pneumonia Current Visit: Yes Status: Acute Qualifiers: Pneumonia type: P Aspiration pneumonia type: A Lung location: L Plan to address problem: Continue antibiotics appropriately adjusted to the degree of renal function (5) Transaminasemia Current Visit: Yes Status: Acute Plan to address problem: Hepatitis profile negative. Liver function tests improving slowly. Continue to follow-up liver function tests. (6) Alzheimer's dementia Current Visit: Yes Status: Acute Qualifiers: Alzheimer's disease onset: A Dementia behavioral disturbance: D Plan to address problem: Continue treatment (7) Hypotension Current Visit: Yes Status: Acute Qualifiers: Hypotension type: H Trimester: T Plan to address problem: Continue volume repletion and follow blood pressure. Hypotensive medications have been stopped (8) Thrombocytopenia Current Visit: Yes Status: Acute Plan to address problem: Unclear what patient's baseline is. Possibly related to sepsis or medications. Platelet count is just a bit lower today. Follow-up platelet counts. Consider hematology consult especially if worsening (9) Acidosis, metabolic Current Visit: Yes Status: Acute Plan to address problem: Anion gap metabolic acidosis secondary to lactic acidosis. Lactic acid is still high. Subjective Date of service: 01/16/17 Principal diagnosis: hyponatremia, acute kidney injury Interval history: Patient seen lying in bed. On BiPAP. Not communicating. Family at bedside. Objective - Exam Narrative Exam: Frail elderly -Hung[place] male lying in bed in acute respiratory distress , cachectic HEENT: Bitemporal wasting, Unco-operative with examining his eyes, Neck: no venous distention CVS: S1S2 RRR with no murmur, rub or gallop Chest: Coarse breath sounds with bilateral rhonchi Abdomen: Scaphoid, soft, nontender, no organomegaly, bowel sounds are present Extremities: No edema. Muscle wasting Skin dry and wrinkled Neuro: Does not open eyes to stimulation, nonverbal, not following commands - Vital Signs Vital signs: Vital Signs - 12hr 01/15/17 01/15/17 01/16/17 20:43 21:08 00:27 Temperature 97.8 F Pulse Rate 114 H Pulse Rate [ 113 H Anterior Bilateral Throughout] Respiratory 22 18 Rate Respiratory 23 Rate [Anterior Bilateral Throughout] Blood Pressure 89/61 O2 Sat by Pulse 100 Oximetry 01/16/17 01/16/17 01/16/17 00:50 02:20 02:30 Temperature Pulse Rate 115 H Pulse Rate [ 110 H 110 H Anterior Bilateral Throughout] Respiratory 27 H Rate Respiratory 31 H 20 Rate [Anterior Bilateral Throughout] Blood Pressure O2 Sat by Pulse Oximetry 01/16/17 01/16/17 04:29 04:37 Temperature 98.2 F Pulse Rate 111 H 38 L Pulse Rate [ Anterior Bilateral Throughout] Respiratory 38 H 18 Rate Respiratory Rate [Anterior Bilateral Throughout] Blood Pressure 88/55 O2 Sat by Pulse 70 L Oximetry - Lab 01/15/17 05:51 01/16/17 07:59 Most recent lab results Calcium 8.3 mg/dL (8.4-10.2) L 01/16/17 07:59 Phosphorus 5.20 mg/dL (2.5-4.5) H 01/14/17 05:33 Magnesium 2.80 mg/dL (1.7-2.3) H 01/14/17 05:33 Urine Creatinine 115.3 mg/dL (0.1-20.0) H 01/14/17 03:44 Urine Sodium 18 mEq/L 01/14/17 03:44 Urine Total Protein 41 mg/dL (5-11.8) H 01/14/17 03:44
[2017-01-16] MEDS ORDERED: VANCOMYCIN PHARMACY TO DOSE IV SCH (09:00)
--- NOTE | 2017-01-16 10:08 | Progress Note ---
Assessment and Plan Acute respiratory failure. On BPAP/NIV. Still w breathing difficulty,chest congestion. Currently DNR CODE STATUS Severe sepsis Shock, possibly multifactorial, septic and hypovolemic Pneumonia,bilateral.On ABX Acute on chronic kidney injury Alzheimer dementia Cardiomyopathy with ejection fraction of 10% Recommendations Continue supportive care Continue ABX Check Urinary Legionella and strep pneumoniae antigens Check blood cultures CHF management per cardiology Update lactate Prognosis poor Subjective Date of service: 01/16/17 Principal diagnosis: hyponatremia, acute kidney injury Interval history: On BPAP non responsive.Family at bedside Objective Vital Signs - 12hr 01/16/17 01/16/17 01/16/17 00:27 00:50 02:20 Temperature 97.8 F Pulse Rate 115 H Pulse Rate [ 110 H Anterior Bilateral Throughout] Respiratory 18 27 H Rate Respiratory 31 H Rate [Anterior Bilateral Throughout] Blood Pressure 89/61 O2 Sat by Pulse Oximetry 01/16/17 01/16/17 01/16/17 02:30 04:29 04:37 Temperature 98.2 F Pulse Rate 111 H 38 L Pulse Rate [ 110 H Anterior Bilateral Throughout] Respiratory 38 H 18 Rate Respiratory 20 Rate [Anterior Bilateral Throughout] Blood Pressure 88/55 O2 Sat by Pulse 70 L Oximetry Constitutional: lethargic, other (on BiPAP support.Thin) Eyes: non-icteric ENT: oropharynx moist Neck: supple, no JVD Effort: mildly labored Ascultation: Bilateral: diminished breath sounds, rhonchi (basal) Percussion: Bilateral: not dull Cardiovascular: regular rate and rhythm Gastrointestinal: normoactive bowel sounds, non-distended Integumentary: normal Extremities: no cyanosis, no edema Neurologic: non-focal exam, CN II-XII normal, unable to assess, other ( movements spontaneously) CBC and BMP: 01/15/17 05:51 01/16/17 07:59 ABG, PT/INR, D-dimer: ABG POC ABG pH 7.481 (7.35-7.45) H 01/14/17 03:42 POC ABG pCO2 20.8 (35-45) L 01/14/17 03:42 POC ABG pO2 265 (80-105) H 01/14/17 03:42 POC ABG HCO3 15.5 01/14/17 03:42 POC ABG Total CO2 16 01/14/17 03:42 POC ABG O2 Sat 100 01/14/17 03:42 PT/INR, D-dimer PT 18.6 Sec. (12.2-14.9) H 01/12/17 09:28 INR 1.47 (0.87-1.13) H 01/12/17 09:28 Abnormal lab findings: Abnormal Labs 01/12/17 01/12/17 01/13/17 16:45 21:16 00:40 Hgb Hct RDW Plt Count Lymph % (Auto) Lymph # Seg Neutrophils % Seg Neuts % (Manual) Lymphocytes % (Manual) Nucleated RBC % Seg Neutrophils # Seg Neutrophils # Man Lymphocytes # (Manual) POC ABG pH POC ABG pCO2 POC ABG pO2 Sodium 155 H 154 H Chloride 113.5 H 115.6 H Carbon Dioxide 16 L 11 L BUN 79 H 78 H Creatinine 2.0 H 2.0 H Glucose 109 H Lactic Acid Calcium Phosphorus Magnesium Total Bilirubin Direct Bilirubin AST ALT Alkaline Phosphatase Total Creatine Kinase Troponin T 1.230 H* D Total Protein Albumin Urine Creatinine Urine Total Protein 01/13/17 01/13/17 01/13/17 02:00 02:00 05:51 Hgb Hct RDW 17.7 H Plt Count 96 L Lymph % (Auto) 5.0 L Lymph # 0.5 L Seg Neutrophils % 90.0 H Seg Neuts % (Manual) Lymphocytes % (Manual) Nucleated RBC % Seg Neutrophils # 9.2 H Seg Neutrophils # Man Lymphocytes # (Manual) POC ABG pH POC ABG pCO2 POC ABG pO2 Sodium 155 H Chloride 115.0 H Carbon Dioxide 15 L BUN 81 H Creatinine 2.3 H Glucose 139 H Lactic Acid Calcium Phosphorus Magnesium Total Bilirubin 1.50 H Direct Bilirubin AST 156 H ALT 114 H Alkaline Phosphatase 227 H Total Creatine Kinase Troponin T 1.060 H* Total Protein 6.2 L Albumin 3.2 L Urine Creatinine Urine Total Protein 01/13/17 01/13/17 01/13/17 13:20 17:24 22:39 Hgb Hct RDW Plt Count Lymph % (Auto) Lymph # Seg Neutrophils % Seg Neuts % (Manual) Lymphocytes % (Manual) Nucleated RBC % Seg Neutrophils # Seg Neutrophils # Man Lymphocytes # (Manual) POC ABG pH POC ABG pCO2 POC ABG pO2 Sodium 154 H Chloride 114.3 H Carbon Dioxide 15 L BUN 87 H Creatinine 2.3 H Glucose 156 H Lactic Acid Calcium Phosphorus Magnesium Total Bilirubin Direct Bilirubin AST ALT Alkaline Phosphatase Total Creatine Kinase Troponin T 1.230 H* 1.240 H* Total Protein Albumin Urine Creatinine Urine Total Protein 01/13/17 01/14/17 01/14/17 22:39 03:42 03:44 Hgb Hct RDW Plt Count Lymph % (Auto) Lymph # Seg Neutrophils % Seg Neuts % (Manual) Lymphocytes % (Manual) Nucleated RBC % Seg Neutrophils # Seg Neutrophils # Man Lymphocytes # (Manual) POC ABG pH 7.481 H POC ABG pCO2 20.8 L POC ABG pO2 265 H Sodium Chloride Carbon Dioxide BUN Creatinine Glucose Lactic Acid 6.80 H* Calcium Phosphorus Magnesium Total Bilirubin Direct Bilirubin AST ALT Alkaline Phosphatase Total Creatine Kinase Troponin T Total Protein Albumin Urine Creatinine 115.3 H Urine Total Protein 41 H 01/14/17 01/14/17 01/14/17 05:33 05:33 05:33 Hgb 11.0 L Hct 32.4 L RDW 16.9 H Plt Count 83 L Lymph % (Auto) Lymph # Seg Neutrophils % Seg Neuts % (Manual) 90.0 H Lymphocytes % (Manual) 6.0 L Nucleated RBC % 5.0 H Seg Neutrophils # Seg Neutrophils # Man Lymphocytes # (Manual) 0.5 L POC ABG pH POC ABG pCO2 POC ABG pO2 Sodium 153 H Chloride 114.9 H Carbon Dioxide 15 L BUN 87 H Creatinine 2.3 H Glucose 183 H Lactic Acid Calcium Phosphorus 5.20 H Magnesium 2.80 H Total Bilirubin Direct Bilirubin 0.6 H AST 89 H ALT 116 H Alkaline Phosphatase 250 H Total Creatine Kinase Troponin T Total Protein 5.8 L Albumin 2.8 L Urine Creatinine Urine Total Protein 01/14/17 01/14/17 01/15/17 05:33 05:33 05:51 Hgb 11.0 L Hct 33.1 L RDW 17.4 H Plt Count 70 L Lymph % (Auto) Lymph # Seg Neutrophils % Seg Neuts % (Manual) 86.0 H Lymphocytes % (Manual) 5.0 L Nucleated RBC % 2.0 H Seg Neutrophils # Seg Neutrophils # Man 9.3 H Lymphocytes # (Manual) 0.5 L POC ABG pH POC ABG pCO2 POC ABG pO2 Sodium Chloride Carbon Dioxide BUN Creatinine Glucose Lactic Acid 5.60 H* Calcium Phosphorus Magnesium Total Bilirubin Direct Bilirubin AST ALT Alkaline Phosphatase Total Creatine Kinase 1773 H Troponin T Total Protein Albumin Urine Creatinine Urine Total Protein 01/15/17 01/15/17 01/16/17 05:51 09:44 07:59 Hgb Hct RDW Plt Count Lymph % (Auto) Lymph # Seg Neutrophils % Seg Neuts % (Manual) Lymphocytes % (Manual) Nucleated RBC % Seg Neutrophils # Seg Neutrophils # Man Lymphocytes # (Manual) POC ABG pH POC ABG pCO2 POC ABG pO2 Sodium 148 H 147 H Chloride 111.9 H 108.6 H Carbon Dioxide 16 L 14 L BUN 79 H 91 H Creatinine 2.2 H 2.6 H Glucose 257 H 235 H Lactic Acid 6.00 H* Calcium 8.2 L 8.3 L Phosphorus Magnesium Total Bilirubin Direct Bilirubin AST 73 H ALT 119 H Alkaline Phosphatase 231 H Total Creatine Kinase 1277 H Troponin T Total Protein 5.7 L Albumin 2.8 L Urine Creatinine Urine Total Protein
[2017-01-16] MEDS: D5NS 0.2% 1,000 ML IV SCH (10:41)
[2017-01-16] MEDS: PEPCID IV SCH (10:41)
[2017-01-16] MEDS: NAMENDA PO SCH ×2 (10:42→23:03)
[2017-01-16] MEDS: ZITHROMAX 500 MG in NACL 0.9% 250ML 250 ML IV SCH (10:49)
[2017-01-16] MEDS ORDERED: SODIUM BICARBONATE FEEDTUBE PRN (11:45)
[2017-01-16] MEDS ORDERED: PANCREAZE DR 10,500 UNIT FEEDTUBE PRN (11:45)
[2017-01-16] MEDS ORDERED: SIMPLE SYRUP FEEDTUBE PRN ×2 (11:45)
[2017-01-16] MEDS: REMERON PO SCH (23:03)
[2017-01-17] MEDS: D5NS 0.2% 1,000 ML IV SCH (00:27)
--- NOTE | 2017-01-17 01:37 | Progress Note ---
Assessment and Plan Acute respiratory failure - likely aspiration event with underlying PNA and CHF - cont nebs, IV ABX, neb, as needed diuresis - pulmonary following Sepsis - mets the criteria with tachycardia, tachypnea and elevated lactate - follow cx, cont abx, trend lactate - changed abx to vanc and zosyn Acute metabolic encephalopathy - likely from underlying, hypernatremia and SEAN - pt also has h/o dementia - will cont light hydration, will treat underlying cause CHF with systolic function 10% - cardiology following - reduce iv fluid rate - s/p one dose of iv lasix 40 mg on 01/14/17 - hold ACEI and BB for hypotension Hypernatremia, likely from dehydration - cont hypotonic solution - follow BMP , nephrology following Acute renal failure likely vasomotor nephropathy - cont iv fluid with reduced rate considering underlying CHF -Medical renal disease on renal US and nephrology following the patient - renal function declining Bilateral pneumonia - cont iv abx, vanc and zosyn - blood cx, negative History of prostate cancer - s/p surgery on 2000, no acute issue now Alzheimer dementia - supportive care - cont namenda when can take po Mild rhabdomyolysis - cont iv fluid, monitor CPK level Severe malnutrition - likely from poor oral intake - dietary consult when medically stable Thrombocytopenia - cont to monitor CBC - cautiously use heparin product - no aspirin for now Elevated troponin - could be from underlying SEAN and underlying systolic dysfunction - will cont to monitor, cardiology consulted - 2d echo showed EF of 10% - Ischemic workup when medically stable Rib fracture - appears acute on cxr, family denies any fall or trauma - supportive care with as needed pain management GI and DVT prophylaxis on pepcid, heparin Diet: NPO now, cont D5 @ 50ml/h Code Status: DNR Disposition: discussed about hospice but family want to wait till Thursday. Brief history: The pt is a 81 YO male with a past medical history significant for HTN, HLP, prostate CA, s/p prostatectomy in 1999 and Alzheimer's disease ( since 2000) presenting with a chief complaint of altered mental status. Today the patient was found to be unresponsive on the floor was subsequently brought in to the ED for evaluation. Following admission, pt noted to have bilateral PNA on CXR, lactic acidosis, acute renal failure, mild rhabdomyolysis, dehydration, hypernatremia and thrombocytopenia. Radiological studies: CT scan of the head on 01/12/2017 showed advanced volume loss and chronic white matter changes, no acute intracranial process. Chest x-ray on admission showed acute left. Fractures possibly involving 6 through 8 ribs. Bibasilar opacities noted. Renal ultrasound on 01/13/2017 showed chronic renal parenchymal disease and left renal cyst. Chest x-ray 01/14/17 shows mild pulmonary venous congestion and small bilateral pleural effusion. Microbiology 01/12/17 11:59 Peripheral/Venous Blood Culture - Final NO GROWTH AFTER 5 DAYS 01/12/17 10:01 Peripheral/Venous Blood Culture - Final NO GROWTH AFTER 5 DAYS 01/12/17 12:08 Urine,[place] Urine Culture - Final NO GROWTH AFTER 48 HOURS Subjective Date of service: 01/16/17 Principal diagnosis: hyponatremia, acute kidney injury Interval history: Pt seen and examined Appears cont to be lethargic today, on BiPAP noted o/n event Discussed plan of care at bedside with family, dobhoff tube could not be placed as he was desaturating Objective - Exam Narrative Exam: GENERAL: This is elderly malnurished AAM lying on bed. Does not respond to any commend. does not open eyes, Nonverbal HEENT: Normocephalic. Atraumatic. No conjunctival congestion or icterus. Patient has very dry mucous membranes. External auditory canal and nares patent bilaterally. NECK: Supple. Trachea midline. CHEST/LUNGS: coarse BS to auscultated bilaterally. There is moderate respiratory distress noted, breathing labored. on BiPAP HEART/CARDIOVASCULAR: tachycardic. PMI at the apex. There is no gallop rub or murmur. ABDOMEN: Abdomen is soft, nontender. Patient has normal bowel sounds. There is no abdominal distention. No organomagaly or rigidity. SKIN: There is no rash, no erythrema. There is no diaphoresis. cold and dry. NEUROLOGY: not responsive, does not follow commend MUSCULOSKELETAL: No joint effusion or tenderness. generalized muscle wasting. EXTRIMITY: No edema, cyanosis or clubbing. PSYCH: nonverbal, does not follow commend. - Constitutional Vitals: Vital Signs - 12hr 01/16/17 01/16/17 01/16/17 13:42 16:00 17:52 Temperature Pulse Rate 105 H Pulse Rate [ 97 H Anterior Bilateral Throughout] Respiratory 26 H Rate Respiratory 20 Rate [Anterior Bilateral Throughout] Blood Pressure Blood Pressure [Left] O2 Sat by Pulse 100 Oximetry 01/16/17 01/16/17 01/16/17 18:40 19:57 20:01 Temperature 97.2 F L 98.2 F Pulse Rate 76 Pulse Rate [ 107 H Anterior Bilateral Throughout] Respiratory 20 18 Rate Respiratory 30 H Rate [Anterior Bilateral Throughout] Blood Pressure 85/55 Blood Pressure [Left] O2 Sat by Pulse 69 L Oximetry 01/16/17 01/16/17 01/16/17 20:02 20:05 20:06 Temperature 98.2 F Pulse Rate 108 H 107 H Pulse Rate [ Anterior Bilateral Throughout] Respiratory 18 30 H Rate Respiratory Rate [Anterior Bilateral Throughout] Blood Pressure Blood Pressure 89/61 [Left] O2 Sat by Pulse 100 92 100 Oximetry 01/16/17 01/16/17 20:15 23:42 Temperature 97.9 F Pulse Rate 79 Pulse Rate [ 111 H Anterior Bilateral Throughout] Respiratory 18 Rate Respiratory 32 H Rate [Anterior Bilateral Throughout] Blood Pressure Blood Pressure 89/61 [Left] O2 Sat by Pulse 90 Oximetry - Labs CBC & Chem 7: 01/15/17 05:51 01/17/17 04:30 Labs: Abnormal lab results 01/16/17 Range/Units 07:59 Sodium 147 H (137-145) mmol/L Chloride 108.6 H (98-107) mmol/L Carbon Dioxide 14 L (22-30) mmol/L BUN 91 H (9-20) mg/dL Creatinine 2.6 H (0.8-1.5) mg/dL Glucose 235 H (75-100) mg/dL Calcium 8.3 L (8.4-10.2) mg/dL
[2017-01-17] MEDS: DUONEB *Not for PRN Use IH SCH ×3 (02:54→13:54)
[2017-01-17 03:12] LABS: BUN/Creatinine Ratio 34.81; Chloride 107.5 mmol/L (98-107); Potassium 4.4 mmol/L (3.6-5.0)
[2017-01-17 06:07] LABS: Albumin 2.6 g/dL (3.9-5); Albumin/Globulin Ratio 0.9 %; BUN/Creatinine Ratio 33.92; Calcium 8.2 mg/dL (8.4-10.2); Chloride 108.2 mmol/L (98-107); Magnesium 2.7 mg/dL (1.7-2.3); Potassium 4.4 mmol/L (3.6-5.0); Total Protein 5.4 g/dL (6.3-8.2)
[2017-01-17] MEDS: HEPARIN SUB-Q SCH (06:40)
[2017-01-17] MEDS: ZOSYN/NS 2.25 GM/50ML 2.25 GM/50 ML BAG IV SCH (06:40)
[2017-01-17] MEDS ORDERED: VANCOMYCIN/NS 1 GM/250 ML 1 GM/250 ML BAG IV ONE (10:00)
[2017-01-17] MEDS: NAMENDA PO SCH (10:03)
[2017-01-17] MEDS: PEPCID IV SCH (12:03)
[2017-01-17] MEDS: ZITHROMAX 500 MG in NACL 0.9% 250ML 250 ML IV SCH (12:03)
[2017-01-17 12:49] VITALS: BP 107/89
--- NOTE | 2017-01-17 14:16 | Death Summary ---
Summary - Providers Date of service: 01/17/17 Consults: 01/12/17 11:28 Speech Therapy Evaluation and Treat [CONS] Routine Reason For Exam: aspiration 01/13/17 10:24 Consult to Physician [CONS] Routine Consulting Provider: KARYNA BILL Reason For Exam: sean, hypernatremia Place consult to:: Dr. Bill Notified:: Anthony RN Phone number called:: Was contact made?: Yes If yes, spoke with:: Mariel-Office Time called:: 10:59 01/14/17 06:57 Consult to Physician [CONS] Routine Consulting Provider: MARLEY HUERTA Reason For Exam: ELEVATED TROPONIN Place consult to:: MARLEY HUERTA Notified:: Juan Jose VILLANUEVA Was contact made?: Yes If yes, spoke with:: Dr. Wooten Time called:: 08:37 01/14/17 14:01 Consult to Physician [CONS] Routine Consulting Provider: MICHELLE MOORE Reason For Exam: acute respiratory failure Place consult to:: Dr. Moore Notified:: Juan Jose VILLANUEVA Phone number called:: Was contact made?: Yes If yes, spoke with:: Laya-office Time called:: 14:16 01/16/17 07:47 Consult to Dietitian/Nutrition [CONS] Routine Physician Instructions: Reason For Exam: Reason for Consult: Write/Manage Tube Feeding Attending: MASON ANDERSON - summary Date of admission: 01/12/17 11:24 Date of : 01/17/17 (at 12:55 pm) Reason for admission: SOB Procedures/treatments rendered: Cause Of : - Cardiorespiratory failure due to severe sepsis and acute CHF exacerbation. Brief Hispital course: Brief history: The pt is a 81 YO male with a past medical history significant for HTN, HLP, prostate CA, s/p prostatectomy in 1999 and Alzheimer's disease ( since 2000) presenting with a chief complaint of altered mental status. Today the patient was found to be unresponsive on the floor was subsequently brought in to the ED for evaluation. Following admission, pt noted to have bilateral PNA on CXR, lactic acidosis, acute renal failure, mild rhabdomyolysis, dehydration, hypernatremia and thrombocytopenia. Problem list and management: Acute respiratory failure - likely aspiration event with underlying PNA and CHF - cont nebs, IV ABX, neb, as needed diuresis - pulmonary following Sepsis - mets the criteria with tachycardia, tachypnea and elevated lactate - follow cx, cont abx, trend lactate - changed abx to vanc and zosyn Acute metabolic encephalopathy - likely from underlying, hypernatremia and SEAN - pt also has h/o dementia - will cont light hydration, will treat underlying cause CHF with systolic function 10% - cardiology following - reduce iv fluid rate - s/p one dose of iv lasix 40 mg on 01/14/17 - hold ACEI and BB for hypotension Hypernatremia, likely from dehydration - cont hypotonic solution - follow BMP , nephrology following Acute renal failure likely vasomotor nephropathy - cont iv fluid with reduced rate considering underlying CHF -Medical renal disease on renal US and nephrology following the patient - renal function declining Bilateral pneumonia - cont iv abx, vanc and zosyn - blood cx, negative History of prostate cancer - s/p surgery on 2000, no acute issue now Alzheimer dementia - supportive care - cont namenda when can take po Mild rhabdomyolysis - cont iv fluid, monitor CPK level Severe malnutrition - likely from poor oral intake - dietary consult when medically stable Thrombocytopenia - cont to monitor CBC - cautiously use heparin product - no aspirin for now Elevated troponin - could be from underlying SEAN and underlying systolic dysfunction - will cont to monitor, cardiology consulted - 2d echo showed EF of 10% - Ischemic workup when medically stable Rib fracture - appears acute on cxr, family denies any fall or trauma - supportive care with as needed pain management GI and DVT prophylaxis on pepcid, heparin Code status: DNR/DNI Radiological studies: CT scan of the head on 01/12/2017 showed advanced volume loss and chronic white matter changes, no acute intracranial process. Chest x-ray on admission showed acute left. Fractures possibly involving 6 through 8 ribs. Bibasilar opacities noted. Renal ultrasound on 01/13/2017 showed chronic renal parenchymal disease and left renal cyst. Chest x-ray 01/14/17 shows mild pulmonary venous congestion and small bilateral pleural effusion. Microbiology 01/12/17 11:59 Peripheral/Venous Blood Culture - Final NO GROWTH AFTER 5 DAYS 01/12/17 10:01 Peripheral/Venous Blood Culture - Final NO GROWTH AFTER 5 DAYS 01/12/17 12:08 Urine,[place] Urine Culture - Final NO GROWTH AFTER 48 HOURS
--- NOTE | 2017-01-17 14:35 | Event Note ---
Date: 01/17/17 Walked in the patient's room to evaluate him at 1:45 PM. Patient was On BiPAP. Could not hear any heart sounds. Nurses noted him to be in asystole on the monitors. Full evaluation performed no evidence of any breathing or signs of life were noted. PCP was notified.
== END 2017-01-17 16:52 | DRG 871 ==
LOC: ED 08:25 → 4A 11:24
PROVIDERS: ADMIT Internal Medicine; ATTEND Internal Medicine
PROC: 5A09457 Assistance with Respiratory Ventilation, 24-96 Consecutive Hours, Continuous Positive Airway Pressure (ICD-10-PCS; principal; 2017-01-14)
DX: A41.9 Sepsis, unspecified organism (principal); G93.41 Metabolic encephalopathy; N17.0 Acute kidney failure with tubular necrosis; J96.00 Acute respiratory failure, unspecified whether with hypoxia or hypercapnia; E43 Unspecified severe protein-calorie malnutrition; R65.21 Severe sepsis with septic shock; I21.4 Non-ST elevation (NSTEMI) myocardial infarction; J18.9 Pneumonia, unspecified organism; E87.0 Hyperosmolality and hypernatremia; M62.82 Rhabdomyolysis; Z68.1 Body mass index [BMI] 19.9 or less, adult; I42.9 Cardiomyopathy, unspecified; I13.0 Hypertensive heart and chronic kidney disease with heart failure and stage 1 through stage 4 chronic kidney disease, or unspecified chronic kidney disease; M84.48XA Pathological fracture, other site, initial encounter for fracture; E86.0 Dehydration; G30.9 Alzheimer's disease, unspecified; F02.80 Dementia in other diseases classified elsewhere, unspecified severity, without behavioral disturbance, psychotic disturbance, mood disturbance, and anxiety; D69.6 Thrombocytopenia, unspecified; I11.0 Hypertensive heart disease with heart failure; E78.5 Hyperlipidemia, unspecified; I34.0 Nonrheumatic mitral (valve) insufficiency; I27.2 Other secondary pulmonary hypertension; N18.9 Chronic kidney disease, unspecified; Z66 Do not resuscitate; I50.9 Heart failure, unspecified; Z87.891 Personal history of nicotine dependence; Z90.79 Acquired absence of other genital organ(s); Z81.8 Family history of other mental and behavioral disorders
CPT/HCPCS: 36415; 70450; 71010; 76770; 80048; 80053; 80061; 80074; 80202; 81001; 82010; 82140; 82550; 82553; 82570; 82803; 82962; 83735; 83935; 84100; 84156; 84300; 84484; 85007; 85025; 85610; 85730; 87040; 87086; 93005; 93010; 93306; 94640; 94660; 94760; 96361; 96365; 96372; J0456; J0696; J1644; J1940; J2270; J2543; J2920; J3370; J7050; J7070; J7131